=== PATIENT | female | born 1980 | race Caucasian/White ===

== ENCOUNTER 2018-02-05 22:07 | Inpatient (IN) | payer BC ==
[2018-02-05] MEDS ORDERED: ACETAMINOPHEN 325 MG TABLET (FP) PO ONE (22:16)
--- NOTE | 2018-02-05 23:54 | PDOC ---
History of Present Illness - General Chief Complaint: Pain, Acute Stated Complaint: ABDOMINAL PAIN, BODYACHES, FEVER Time Seen by Provider: 02/05/18 23:54 Past History - Past Medical History Allergies/Adverse Reactions: Allergies Allergy/AdvReac Type Severity Reaction Status Date / Time No Known Allergies Allergy Verified 01/28/16 20:23 Home Medications: Ambulatory Orders Omeprazole 20 mg PO DAILY 01/28/16 COPD: No - Suicide/Smoking/Psychosocial Hx Smoking History: Never smoked Number of Cigarettes Smoked Daily: 0 Hx Alcohol Use: No Drug/Substance Use Hx: No *Physical Exam - Vital Signs Last Vital Signs Temp Pulse Resp BP Pulse Ox 101.2 F H 120 H 18 119/73 97 02/05/18 22:12 02/05/18 22:12 02/05/18 22:12 02/05/18 22:12 02/05/18 22:12 ED Treatment Course - Medications Given in the ED: ED Medications Discontinued Medications Generic Name Dose Route Start Last Admin Trade Name Summer PRN Reason Stop Dose Admin Acetaminophen 650 mg 02/05/18 22:16 02/05/18 22:17 Tylenol - PO 02/05/18 22:17 650 mg NOW ONE Administration *DC/Admit/Observation/Transfer - Referrals Referrals: Joselo Saxena MD [Primary Care Provider] - - Patient Instructions - Post Discharge Activity
[2018-02-05] MEDS ORDERED: SODIUM CHLORIDE 0.9% 1000 ML INFUS.BAG IV STA (23:55)
[2018-02-05] MEDS ORDERED: ACETAMINOPHEN 1000 MG/100 ML VIAL (NON FORMULARY) IVPB ONE (23:58)
--- NOTE | 2018-02-06 00:13 | PDOC ---
History of Present Illness - General Chief Complaint: Pain, Acute Stated Complaint: ABDOMINAL PAIN, BODYACHES, FEVER Time Seen by Provider: 02/05/18 23:54 - History of Present Illness Initial Comments: 02/06/18 00:09 37 yo F with h/o GERD, and migraines (Topiramate) who p/w diffuse, sharp, abdominal pain. Patient reports acute onset of diffuse, unremitting, sharp, abdominal pain beginning Tuesday (02/03/18), while at work. Endorses chills and body aches beginning Tuesday. Reports loose stools 02/04/18 and associated crampy abdominal pain with BM. Denies BPR, or mucous stools. No identifiable triggers or alleviators. Endorses fevers and chills x 3 days with Tmax 101.0. Denies h/o similar symptoms. Reports heart racing, body aches, decreased appetite, and nausea without vomiting. 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 Patient denies N/V, F,C, CP, SOB, urinary complaints, abdominal pain, diarrhea, constipation, lightheadedness, weakness, sensory changes. PMHx: as noted above Surgical: Dneies h/o adbominal or pelvic surgeyr ROS: as noted SHx: Denies tobacco use, IVDA. Social Etoh Allergies: NKDA Past History - Past Medical History Allergies/Adverse Reactions: Allergies Allergy/AdvReac Type Severity Reaction Status Date / Time No Known Allergies Allergy Verified 01/28/16 20:23 Home Medications: Ambulatory Orders Omeprazole 20 mg PO DAILY 01/28/16 COPD: No - Suicide/Smoking/Psychosocial Hx Smoking History: Never smoked Number of Cigarettes Smoked Daily: 0 Hx Alcohol Use: No Drug/Substance Use Hx: No Review of Systems - Review of Systems Comments:: 02/06/18 00:19 GENERAL/CONSTITUTIONAL: + fever and chills. No weakness. HEAD, EYES, EARS, NOSE AND THROAT: No change in vision. No ear pain or discharge. No sore throat. CARDIOVASCULAR: No chest pain or shortness of breath RESPIRATORY: No cough, wheezing, or hemoptysis. GASTROINTESTINAL: + nausea, vomiting, diarrhea, and abdominal pain. No constipation. GENITOURINARY: No dysuria, frequency, or change in urination. MUSCULOSKELETAL: + joint /muscle pain. No neck or back pain. SKIN: No rash NEUROLOGIC: No headache, vertigo, loss of consciousness, or change in strength/ sensation. ENDOCRINE: No increased thirst. No abnormal weight change HEMATOLOGIC/LYMPHATIC: No anemia, easy bleeding, or history of blood clots. ALLERGIC/IMMUNOLOGIC: No hives or skin allergy. *Physical Exam - Vital Signs Last Vital Signs Temp Pulse Resp BP Pulse Ox 101.2 F H 120 H 18 119/73 97 02/05/18 22:12 02/05/18 22:12 02/05/18 22:12 02/05/18 22:12 02/05/18 22:12 - Physical Exam Comments: 02/06/18 00:19 GENERAL: Awake, alert, and fully oriented, in no acute distress HEAD: No signs of trauma, normocephalic, atraumatic EYES: PERRLA, EOMI, sclera anicteric, conjunctiva clear ENT: Dry mucous membranes. hearing grossly normal, nares patent, oropharynx clear without exudates. NECK: Normal ROM, supple, no lymphadenopathy, JVD, or masses LUNGS: No distress, speaks full sentences, clear to auscultation bilaterally HEART: Regular rate and rhythm, normal S1 and S2, no murmurs, rubs or gallops, peripheral pulses normal and equal bilaterally. ABDOMEN: + LLQ abdominal ttp. Soft, normoactive bowel sounds. No guarding, no rebound, no rigidity. No masses. Neg CVA ttp. EXTREMITIES : Normal inspection, Normal range of motion, no edema. No clubbing or cyanosis. s SKIN: Warm, Dry, normal turgor, no rashes or lesions noted ED Treatment Course - LABORATORY CBC & Chemistry Diagram: 02/07/18 06:30 02/07/18 06:30 - Medications Given in the ED: ED Medications Discontinued Medications Generic Name Dose Route Start Last Admin Trade Name Freq PRN Reason Stop Dose Admin Acetaminophen 650 mg 02/05/18 22:16 02/05/18 22:17 Tylenol - PO 02/05/18 22:17 650 mg NOW ONE Administration Medical Decision Making - Medical Decision Making 02/06/18 00:16 37 yo F with h/o migraines ( Topiramate ) who p/w diffuse, sharp, abdominal pain. Temp 101.2, HR 120, vitals otherwise stable. + LLQ ttp. Will evaluate for diverticulitis vs. colitis. Will consider appendicitis, pyelonephritis, cystitis. Low suspicion pancreatitis, AAA, mesenteric ischemia, ovarian torsion. pain control and adequate fluid hydration. ED Course: Sepsis workup, LA, Blood Cx., Trop, VBG, CBC,CMP, UA, Urine preg APAP, NS 02/06/18 02:41 CBC, CMP: Unremarkable UA: Neg Serum HCG: Neg Trop: Neg 02/06/18 02:41 Patient signed out to Dr. Isabel. Pending CTAP to assess for diverticulitis or enteritis. *DC/Admit/Observation/Transfer Diagnosis at time of Disposition: Acute colitis - Discharge Dispostion Condition at time of disposition: Fair Decision to Admit order: Yes - Referrals - Patient Instructions - Post Discharge Activity
--- NOTE | 2018-02-06 00:18 | PDOC ---
Attending Attestation - HPI HPI: 02/06/18 00:46 The patient is a 37 year old female, with a significant past medical history of migraines (Topiramate), who presents to the emergency department with chills, fevers, body aches, abdominal pain, loose stools and nausea since Tuesday afternoon. She states she was seated at work and developed chills. She states she noted her temperature to be 101F at the time. She states she went home and developed a progressive onset of abdominal pain, more prominent to the left, loose stools with associated abdominal cramping, and nausea. She denies any vomiting. She reports her stools are loose, nonbilious, nonbloody. She reports decreased appetite since the onset of her symptoms. She denies any recent travels. She denies any new foods or recent ETOH. 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 The patient denies chest pain, shortness of breath, headache and dizziness. The patient denies vomit, diarrhea and constipation. The patient denies dysuria, frequency, urgency and hematuria. Allergies: NKDA Past surgical history: no abdominal surgery reported Social history: denies ETOH, tobacco, or illicit drug use. - Physicial Exam PE: 02/06/18 00:46 GENERAL: Well-appearing, well-nourished. No apparent distress. HEENT: Normocephalic, atraumatic. PERRL, EOM intact. CARDIOVASCULAR: Normal S1, S2. Regular rate and rhythm. PULMONARY: Clear to auscultation bilaterally. ABDOMEN: (+) LLQ tenderness to palpation. soft, non-distended, MUSCULOSKELETAL: (+) mild left CVA tenderness EXTREMITIES: Normal ROM in all four extremities. No gross deformities. SKIN: Warm, dry. No rash NEUROLOGICAL: No focal neurological deficits. 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
[2018-02-06] MEDS ORDERED: ACETAMINOPHEN INJECTION 100 ML IVPB ONE ×3 (01:28→13:41)
[2018-02-06 01:30] LABS: BASO % 0.1 % (0-2.0); EOS % 1.4 % (0-4.5); HEMATOCRIT 35.6 % (32.4-45.2); HEMOGLOBIN 12.3 GM/dL (10.7-15.3); LYMPH % 8.9 % (8-40); MCH 30.2 pg (25.7-33.7); MCHC 34.4 g/dl (32.0-36.0); MEAN CELL VOLUME 87.8 fl (80-96); MEAN PLT VOLUME 8.8 fl (7.5-11.1); MONO % 4.1 % (3.8-10.2); NEUT % 85.5 % (42.8-82.8); PLATELET COUNT 212 K/MM3 (134-434); RBC 4.06 M/mm3 (3.60-5.2); RDW 13.4 % (11.6-15.6); WHITE BLOOD COUNT 9.8 K/mm3 (4.0-10.0)
[2018-02-06 01:46] LABS: INR 1.09 (0.83-1.09); PROTHROMBIN TIME (PATIENT) 12.9 SEC (9.7-13.0)
[2018-02-06 01:49] LABS: ACTIVATED PTT 26.7 SECONDS (25.2-36.5)
[2018-02-06 01:54] LABS: URINE APPEARANCE CLEAR; URINE BILIRUBIN NEGATIVE (<2.0 mg/dL); URINE COLOR YELLOW; URINE GLUCOSE (UA) NEGATIVE (NEGATIVE); URINE KETONE TRACE (NEGATIVE); URINE LEUK ESTERASE NEGATIVE (NEGATIVE); URINE NITRITE NEGATIVE (NEGATIVE); URINE PROTEIN NEGATIVE (NEGATIVE); URINE UROBILINOGEN NEGATIVE mg/dL (0.2-1.0)
[2018-02-06 01:57] LABS: ALK PHOS 64 U/L (45-117); ANION GAP 9 MMOL/L (8-16); BILIRUBIN,TOTAL 0.4 mg/dL (0.2-1); BLOOD UREA NITROGEN 9 mg/dL (7-18); CHLORIDE 107 mmol/L (98-107); CO2 24 mmol/L (21-32); CREATININE 0.8 mg/dL (0.55-1.3); GLUCOSE,RANDOM 95 mg/dL (74-106); POTASSIUM 3.7 mmol/L (3.5-5.1); SGOT/AST 21 U/L (15-37); SGPT/ALT 15 U/L (13-61); SODIUM 139 mmol/L (136-145); TOT PROT 6.4 g/dl (6.4-8.2)
[2018-02-06 02:04] LABS: EPI CELLS RARE /HPF (FEW); URINE BACTERIA FEW /hpf (NONE SEEN); URINE MUCUS RARE
[2018-02-06] MEDS ORDERED: CIPROFLOXACIN 400 MG/D5W 400 MG/200 ML IVPB IVPB ONE (07:29)
[2018-02-06] MEDS ORDERED: SODIUM CHLORIDE 0.9% 500 ML INFUS.BAG IV ONE (07:29)
[2018-02-06] MEDS ORDERED: ACETAMINOPHEN 1000 MG/100 ML VIAL (NON FORMULARY) IVPB ONE (07:31)
[2018-02-06] MEDS ORDERED: morphine CARPU-JECT 4 MG/1 ML DISP.SYRIN IVPUSH ONE (07:31)
--- NOTE | 2018-02-06 07:42 | PDOC ---
*Physical Exam - Vital Signs Last Vital Signs Temp Pulse Resp BP Pulse Ox 100.2 F H 104 H 18 116/62 97 02/06/18 07:26 02/06/18 07:26 02/06/18 07:26 02/06/18 07:26 02/06/18 07:26 ED Treatment Course - LABORATORY CBC & Chemistry Diagram: 02/06/18 01:20 02/06/18 01:20 - ADDITIONAL ORDERS Additional order review: Laboratory Results 02/06/18 02/06/18 02/06/18 02:11 01:27 01:20 PT with INR INR PTT (Actin FS) VBG pH POC VBG pCO2 POC VBG pO2 Mixed VBG HCO3 Sodium Potassium Chloride Carbon Dioxide Anion Gap BUN Creatinine Creat Clearance w eGFR Random Glucose Lactic Acid Calcium Total Bilirubin AST ALT Alkaline Phosphatase Troponin I < 0.02 Total Protein Albumin Serum , Qual Negative Urine Color Yellow Urine Appearance Clear Urine pH 5.0 Ur Specific [place] 1.013 Urine Protein Negative Urine Glucose (UA) Negative Urine Ketones Trace H Urine Blood 2+ H Urine Nitrite Negative Urine Bilirubin Negative Urine Urobilinogen Negative Ur Leukocyte Esterase Negative Urine WBC (Auto) 3 Urine RBC (Auto) 1 Ur Epithelial Cells Rare Urine Bacteria Few Urine Mucus Rare 02/06/18 02/06/18 02/06/18 01:20 01:20 01:20 PT with INR INR PTT (Actin FS) VBG pH Cancelled POC VBG pCO2 Cancelled POC VBG pO2 Cancelled Mixed VBG HCO3 Cancelled Sodium 139 Potassium 3.7 Chloride 107 Carbon Dioxide 24 Anion Gap 9 BUN 9 Creatinine 0.8 Creat Clearance w eGFR > 60 Random Glucose 95 Lactic Acid 1.8 Calcium 8.0 L Total Bilirubin 0.4 AST 21 ALT 15 Alkaline Phosphatase 64 Troponin I Total Protein 6.4 Albumin 3.0 L Serum , Qual Urine Color Urine Appearance Urine pH Ur Specific [place] Urine Protein Urine Glucose (UA) Urine Ketones Urine Blood Urine Nitrite Urine Bilirubin Urine Urobilinogen Ur Leukocyte Esterase Urine WBC (Auto) Urine RBC (Auto) Ur Epithelial Cells Urine Bacteria Urine Mucus 02/06/18 01:20 PT with INR 12.90 INR 1.09 PTT (Actin FS) 26.7 VBG pH POC VBG pCO2 POC VBG pO2 Mixed VBG HCO3 Sodium Potassium Chloride Carbon Dioxide Anion Gap BUN Creatinine Creat Clearance w eGFR Random Glucose Lactic Acid Calcium Total Bilirubin AST ALT Alkaline Phosphatase Troponin I Total Protein Albumin Serum , Qual Urine Color Urine Appearance Urine pH Ur Specific [place] Urine Protein Urine Glucose (UA) Urine Ketones Urine Blood Urine Nitrite Urine Bilirubin Urine Urobilinogen Ur Leukocyte Esterase Urine WBC (Auto) Urine RBC (Auto) Ur Epithelial Cells Urine Bacteria Urine Mucus 02/06/18 01:20 RBC 4.06 MCV 87.8 MCHC 34.4 RDW 13.4 MPV 8.8 Neutrophils % 85.5 H Lymphocytes % 8.9 Monocytes % 4.1 Eosinophils % 1.4 Basophils % 0.1 - Medications Given in the ED: ED Medications Discontinued Medications Generic Name Dose Route Start Last Admin Trade Name Freq PRN Reason Stop Dose Admin Acetaminophen 650 mg 02/05/18 22:16 02/05/18 22:17 Tylenol - PO 02/05/18 22:17 650 mg NOW ONE Administration Acetaminophen 1,000 mg 02/05/18 23:58 02/06/18 01:38 Ofirmev Injection - IVPB 02/05/18 23:59 1,000 mg ONCE ONE Administration Sodium Chloride 1,810 ml 02/05/18 23:55 02/06/18 00:56 Normal Saline - 30 ml/kg (1810 ml) 02/05/18 23:56 1,810 ml IV Administration ONCE STA Medical Decision Making - Medical Decision Making 02/06/18 07:42 Pt information based on chart review and encounter. 37 yo F with h/o GERD, and migraines (Topiramate) who p/w diffuse, sharp, abdominal pain, n/v/d x 3 days, +fever and chills, body aches and malaise. vitals with fever and tachycardia, has SIRS criteria, but does not appear toxic. sepsis source with normal lactic 2/2 colitis. had given tylenol/IVF overnight. fever recurred. labs and lytes reviewed. lactic normal. given additional tylenol and IVF> CT a/p reviewed with acute colitis, no other intra abdominal pathology. Cipro/flagyl IV abx for colitis. on reasssessment at 730am, pain recurred, more in LLQ w/o peritoneal signs, treat with morphine, pain control. still having high fever and pain with difficulty denise PO. discussed results, impression and plan with patient at bedside extensively, pt feels comfortable with admission for IV fluids, abx and pain control for acute colitis. admit to hospitalist service, PMD Dr. Saxena in [place].. 02/06/18 07:48 02/06/18 07:51 02/06/18 07:51 *DC/Admit/Observation/Transfer Diagnosis at time of Disposition: Acute colitis - Discharge Dispostion Condition at time of disposition: Fair Decision to Admit order: Yes Decision to Admit order Date/Time: 02/06/18 07:48 Decision to Admit Order Category Date Time Status Decision to Admit to Hospital Routine Admission 02/06/18 07:30 Ordered - Referrals Referrals: Joselo Saxena MD [Primary Care Provider] - - Patient Instructions - Post Discharge Activity
[2018-02-06] MEDS ORDERED: morphine SULFATE 4 MG/ML VIAL ONE (07:52)
--- NOTE | 2018-02-06 09:09 | HP ---
CHIEF COMPLAINT: abdominal pain PCP: Dr. Saxena in [facility] HISTORY OF PRESENT ILLNESS: 37F with PMH of migraine and gastritis in the past presents to the hospital with abdominal pain. Patient states the Abdominal pain started Jamari night. Later that night the pain progressed and started to be accompanied with diarrhea and fever. she states she also started to get nauseous. She denies any vomiting or dry heaving but occasionally gags. She states she had a fever Jamari night that was as high as 101. She describes the diarrhea as loose and watery. Denies seeing blood in her stool. She has had almost no PO intake since her symptoms started. She also endorses chills. she denies chest pain shortness of breath or urinary symptoms. Had a CT scan in the ED which was read by imaging cathodic protection technician and was found to have acute colitis. She was also noted to be febrile to 101.2 and tachycardic. Patient endorses having an EGD a few years ago for gastritis. She endorses being thirsty at this time but too nauseated to drink anything. ER course was notable for: (1)Labs (2)CTAP (3)IVF ABx Recent Travel:Denies PAST MEDICAL HISTORY:Migraines PAST SURGICAL HISTORY:Lasix eye surgery Social History: Smoking:Denies Alcohol:Denies Drugs: Denies Family History:NA Allergies No Known Allergies Allergy (Verified 01/28/16 20:23) HOME MEDICATIONS: Home Medications Medication Instructions Recorded Omeprazole 20 mg PO DAILY 01/28/16 REVIEW OF SYSTEMS CONSTITUTIONAL: Absent: diaphoresis, generalized weakness, malaise, weight change Present: fever, chills, loss of appetite HEENT: Absent: rhinorrhea, nasal congestion, throat pain, throat swelling, difficulty swallowing, mouth swelling, ear pain, eye pain, visual changes CARDIOVASCULAR: Absent: chest pain, syncope, palpitations, irregular heart rate, lightheadedness , peripheral edema RESPIRATORY: Absent: cough, shortness of breath, dyspnea with exertion, orthopnea, wheezing, stridor, hemoptysis GASTROINTESTINAL: Absent: abdominal distension,vomiting, constipation, melena, hematochezia Present: abdominal pain, nausea, diarrhea GENITOURINARY: Absent: dysuria, frequency, urgency, hesitancy, hematuria, flank pain, genital pain MUSCULOSKELETAL: Absent: myalgia, arthralgia, joint swelling, back pain, neck pain SKIN: Absent: rash, itching, pallor HEMATOLOGIC/IMMUNOLOGIC: Absent: easy bleeding, easy bruising, lymphadenopathy, frequent infections ENDOCRINE: Absent: unexplained weight gain, unexplained weight loss, heat intolerance, cold intolerance NEUROLOGIC: Absent: headache, focal weakness or paresthesias, dizziness, unsteady gait, seizure, mental status changes, bladder or bowel incontinence PSYCHIATRIC: Absent: anxiety, depression, suicidal or homicidal ideation, hallucinations. PHYSICAL EXAMINATION Vital Signs - 24 hr 02/05/18 02/06/18 22:12 07:26 Temperature 101.2 F H 100.2 F H Pulse Rate 120 H Pulse Rate [ 104 H Left Apical] Respiratory 18 18 Rate Blood Pressure 119/73 Blood Pressure 116/62 [Right Arm] O2 Sat by Pulse 97 97 Oximetry (%) GENERAL: Awake, alert, and fully oriented, in no acute distress. HEAD: Normal with no signs of trauma. EYES: Pupils equal, round and reactive to light, extraocular movements intact EARS, NOSE, THROAT: Dry mucous membranes. NECK: Normal range of motion, supple LUNGS: Breath sounds equal, clear to auscultation bilaterally. No accessory muscle use. HEART: Regular rate and rhythm, normal S1 and S2 without murmur, rub or gallop. ABDOMEN: Soft, diffusely tender to palpation, not distended, normoactive bowel sounds, no guarding, no rebound MUSCULOSKELETAL: Normal range of motion at all joints. No bony deformities or tenderness. No CVA tenderness. UPPER EXTREMITIES: warm, well-perfused. No peripheral edema. LOWER EXTREMITIES: warm, well-perfused. No calf tenderness. No peripheral edema. NEUROLOGICAL: Cranial nerves II-XII intact. Normal speech. PSYCHIATRIC: Cooperative. Good eye contact. Appropriate mood and affect. SKIN: Warm, dry, normal turgor Laboratory Results - last 24 hr 02/06/18 02/06/18 02/06/18 01:20 01:20 01:20 WBC 9.8 RBC 4.06 Hgb 12.3 Hct 35.6 MCV 87.8 MCH 30.2 MCHC 34.4 RDW 13.4 Plt Count 212 MPV 8.8 Absolute Neuts (auto) 8.4 H Neutrophils % 85.5 H Lymphocytes % 8.9 Monocytes % 4.1 Eosinophils % 1.4 Basophils % 0.1 Nucleated RBC % 0 PT with INR 12.90 INR 1.09 PTT (Actin FS) 26.7 VBG pH Cancelled POC VBG pCO2 Cancelled POC VBG pO2 Cancelled Mixed VBG HCO3 Cancelled Sodium Potassium Chloride Carbon Dioxide Anion Gap BUN Creatinine Creat Clearance w eGFR Random Glucose Lactic Acid Calcium Total Bilirubin AST ALT Alkaline Phosphatase Troponin I Total Protein Albumin Serum , Qual Urine Color Urine Appearance Urine pH Ur Specific [place] Urine Protein Urine Glucose (UA) Urine Ketones Urine Blood Urine Nitrite Urine Bilirubin Urine Urobilinogen Ur Leukocyte Esterase Urine WBC (Auto) Urine RBC (Auto) Ur Epithelial Cells Urine Bacteria Urine Mucus 02/06/18 02/06/18 02/06/18 01:20 01:20 01:20 WBC RBC Hgb Hct MCV MCH MCHC RDW Plt Count MPV Absolute Neuts (auto) Neutrophils % Lymphocytes % Monocytes % Eosinophils % Basophils % Nucleated RBC % PT with INR INR PTT (Actin FS) VBG pH POC VBG pCO2 POC VBG pO2 Mixed VBG HCO3 Sodium 139 Potassium 3.7 Chloride 107 Carbon Dioxide 24 Anion Gap 9 BUN 9 Creatinine 0.8 Creat Clearance w eGFR > 60 Random Glucose 95 Lactic Acid 1.8 Calcium 8.0 L Total Bilirubin 0.4 AST 21 ALT 15 Alkaline Phosphatase 64 Troponin I < 0.02 Total Protein 6.4 Albumin 3.0 L Serum , Qual Urine Color Urine Appearance Urine pH Ur Specific [place] Urine Protein Urine Glucose (UA) Urine Ketones Urine Blood Urine Nitrite Urine Bilirubin Urine Urobilinogen Ur Leukocyte Esterase Urine WBC (Auto) Urine RBC (Auto) Ur Epithelial Cells Urine Bacteria Urine Mucus 02/06/18 02/06/18 01:27 02:11 WBC RBC Hgb Hct MCV MCH MCHC RDW Plt Count MPV Absolute Neuts (auto) Neutrophils % Lymphocytes % Monocytes % Eosinophils % Basophils % Nucleated RBC % PT with INR INR PTT (Actin FS) VBG pH POC VBG pCO2 POC VBG pO2 Mixed VBG HCO3 Sodium Potassium Chloride Carbon Dioxide Anion Gap BUN Creatinine Creat Clearance w eGFR Random Glucose Lactic Acid Calcium Total Bilirubin AST ALT Alkaline Phosphatase Troponin I Total Protein Albumin Serum , Qual Negative Urine Color Yellow Urine Appearance Clear Urine pH 5.0 Ur Specific [place] 1.013 Urine Protein Negative Urine Glucose (UA) Negative Urine Ketones Trace H Urine Blood 2+ H Urine Nitrite Negative Urine Bilirubin Negative Urine Urobilinogen Negative Ur Leukocyte Esterase Negative Urine WBC (Auto) 3 Urine RBC (Auto) 1 Ur Epithelial Cells Rare Urine Bacteria Few Urine Mucus Rare CTAP: Acute colitis of sigmoid colon-Preliminary read by imaging cathodic protection technician. ASSESSMENT/PLAN: 37F presents to the ER with abdominal pain, nausea, diarrhea, and fever, found to be septic secondary to acute colitis. Sepsis from acute colitis: Colitis causing her diarrhea and volume dehydration Tachycardic, febrile, with a source found Admit to inpatient services NPO IVF Pain control Antipyretics Antiemetics send stool culture, Ova and parasites, WBCs UCx, BCx follow up ceftriaxone flagyl-Patient got cipro flagyl in ED follow up final CTAO read FEN: NS @ 100ml/hr no electrolyte issues NPO for now-advance to clear liquid diet as tolerated PPx: SCDs/HSQ no GI PPx indicated Ambulate Case discussed with Dr. Lundberg Visit type - Emergency Visit Emergency Visit: Yes ED Registration Date: 02/06/18 Care time: The patient presented to the Emergency Department on the above date and was hospitalized for further evaluation of their emergent condition. - New Patient This patient is new to me today: Yes Date on this admission: 02/06/18 - Critical Care Critical Care patient: No Hospitalist Screening - Colonoscopy Questionnaire Colonoscopy Questionnaire: Colonoscopy Questionnaire - Patient: 50 - 75 years old and never had a screening colonoscopy: No History of colon or rectal polyps, or CA: No History of IBD, Crohn's disease or UC: No History of abdominal radiation therapy as a child: No - Relative: 1 with colon or rectal CA, or polyps at age 60 or younger: No Colon or rectal CA diagnosed at age 45 or younger: No Multiple relatives with colon or rectal CA: No - Outcome: Screening Result: Negative Screen
--- NOTE | 2018-02-06 09:42 | PN ---
Teaching Attending Note Name of Resident: Tommy Conway ATTENDING PHYSICIAN STATEMENT I saw and evaluated the patient. I reviewed the resident's note and discussed the case with the resident. I agree with the resident's findings and plan as documented. SUBJECTIVE: This is a 37 year old woman with a history of gastritis who comes to the ED complaining of abdominal pain x 2-3 days. She has had fever, nausea, and diarrhea, but no vomiting. She denies melena, rectal bleeding. OBJECTIVE: Vital Signs Period Temp Pulse Resp BP Sys/Park Pulse Ox Last 24 Hr 100.2 F-101.2 F 104-120 -18 116-119/62-73 97-97 HEART: S1S2, tachycardic LUNGS: Clear ABDOMEN: Soft, non-distended, diffuse tenderness, normal BS EXTREMITIES: No edema Laboratory Tests 02/06/18 02/06/18 02/06/18 01:20 01:20 01:20 WBC 9.8 RBC 4.06 Hgb 12.3 Hct 35.6 MCV 87.8 MCH 30.2 MCHC 34.4 RDW 13.4 Plt Count 212 MPV 8.8 Absolute Neuts (auto) 8.4 H Neutrophils % 85.5 H Lymphocytes % 8.9 Monocytes % 4.1 Eosinophils % 1.4 Basophils % 0.1 Nucleated RBC % 0 PT with INR 12.90 INR 1.09 PTT (Actin FS) 26.7 VBG pH Cancelled POC VBG pCO2 Cancelled POC VBG pO2 Cancelled Mixed VBG HCO3 Cancelled Sodium Potassium Chloride Carbon Dioxide Anion Gap BUN Creatinine Creat Clearance w eGFR Random Glucose Lactic Acid Calcium Total Bilirubin AST ALT Alkaline Phosphatase Troponin I Total Protein Albumin Serum , Qual Urine Color Urine Appearance Urine pH Ur Specific [place] Urine Protein Urine Glucose (UA) Urine Ketones Urine Blood Urine Nitrite Urine Bilirubin Urine Urobilinogen Ur Leukocyte Esterase Urine WBC (Auto) Urine RBC (Auto) Ur Epithelial Cells Urine Bacteria Urine Mucus 02/06/18 02/06/18 02/06/18 01:20 01:20 01:20 WBC RBC Hgb Hct MCV MCH MCHC RDW Plt Count MPV Absolute Neuts (auto) Neutrophils % Lymphocytes % Monocytes % Eosinophils % Basophils % Nucleated RBC % PT with INR INR PTT (Actin FS) VBG pH POC VBG pCO2 POC VBG pO2 Mixed VBG HCO3 Sodium 139 Potassium 3.7 Chloride 107 Carbon Dioxide 24 Anion Gap 9 BUN 9 Creatinine 0.8 Creat Clearance w eGFR > 60 Random Glucose 95 Lactic Acid 1.8 Calcium 8.0 L Total Bilirubin 0.4 AST 21 ALT 15 Alkaline Phosphatase 64 Troponin I < 0.02 Total Protein 6.4 Albumin 3.0 L Serum , Qual Urine Color Urine Appearance Urine pH Ur Specific [place] Urine Protein Urine Glucose (UA) Urine Ketones Urine Blood Urine Nitrite Urine Bilirubin Urine Urobilinogen Ur Leukocyte Esterase Urine WBC (Auto) Urine RBC (Auto) Ur Epithelial Cells Urine Bacteria Urine Mucus 02/06/18 02/06/18 01:27 02:11 WBC RBC Hgb Hct MCV MCH MCHC RDW Plt Count MPV Absolute Neuts (auto) Neutrophils % Lymphocytes % Monocytes % Eosinophils % Basophils % Nucleated RBC % PT with INR INR PTT (Actin FS) VBG pH POC VBG pCO2 POC VBG pO2 Mixed VBG HCO3 Sodium Potassium Chloride Carbon Dioxide Anion Gap BUN Creatinine Creat Clearance w eGFR Random Glucose Lactic Acid Calcium Total Bilirubin AST ALT Alkaline Phosphatase Troponin I Total Protein Albumin Serum , Qual Negative Urine Color Yellow Urine Appearance Clear Urine pH 5.0 Ur Specific [place] 1.013 Urine Protein Negative Urine Glucose (UA) Negative Urine Ketones Trace H Urine Blood 2+ H Urine Nitrite Negative Urine Bilirubin Negative Urine Urobilinogen Negative Ur Leukocyte Esterase Negative Urine WBC (Auto) 3 Urine RBC (Auto) 1 Ur Epithelial Cells Rare Urine Bacteria Few Urine Mucus Rare Home Medications Medication Instructions Recorded Omeprazole 20 mg PO DAILY 01/28/16 ASSESSMENT AND PLAN: This is a 37 year old woman with a history of gastritis who presented to the ED with abdominal pain, fever, nausea, and diarrhea x 2-3 days. 1. Sepsis secondary to acute colitis - NPO - IV fluid - Rocephin, Flagyl - Morphine as needed for pain - Zofran as needed for nausea - Stool studies 2. Gastritis - Continue Prilosec
[2018-02-06] MEDS ORDERED: ENOXAPARIN NA (PORCINE) 40 MG/0.4 ML DISP.SYRIN SQ ONE (10:40)
[2018-02-06] MEDS ORDERED: ONDANSETRON 4 MG/2 ML VIAL ONE ×2 (10:40→13:19)
[2018-02-06] MEDS: ENOXAPARIN NA (PORCINE) 40 MG/0.4 ML DISP.SYRIN SQ SCH (10:57)
[2018-02-06] MEDS: SODIUM CHLORIDE 1,000 ML IV SCH ×2 (10:57→17:24)
[2018-02-06] MEDS ORDERED: MORPHINE SULFATE 2 MG/ML VIAL ONE (13:19)
[2018-02-06] MEDS: MORPHINE SULFATE 2 MG/ML VIAL IVPUSH PRN ×2 (13:25→19:18)
[2018-02-06] MEDS: ONDANSETRON 4 MG/2 ML VIAL IVPUSH PRN ×2 (13:25→19:37)
[2018-02-06] MEDS: ACETAMINOPHEN 1000 MG/100 ML VIAL (NON FORMULARY) IVPB PRN (13:45)
[2018-02-06 19:30] VITALS: BMI 22.1
[2018-02-07] MEDS: ACETAMINOPHEN 1000 MG/100 ML VIAL (NON FORMULARY) IVPB PRN (06:54)
[2018-02-07 08:04] LABS: BASO % 0.2 % (0-2.0); EOS % 1.3 % (0-4.5); HEMATOCRIT 36.3 % (32.4-45.2); HEMOGLOBIN 12.2 GM/dL (10.7-15.3); LYMPH % 11.7 % (8-40); MCH 29.5 pg (25.7-33.7); MCHC 33.7 g/dl (32.0-36.0); MEAN CELL VOLUME 87.6 fl (80-96); MEAN PLT VOLUME 9.1 fl (7.5-11.1); MONO % 10.8 % (3.8-10.2); PLATELET COUNT 238 K/MM3 (134-434); RBC 4.14 M/mm3 (3.60-5.2); RDW 13.4 % (11.6-15.6)
[2018-02-07 08:08] LABS: ANION GAP 14 MMOL/L (8-16); BLOOD UREA NITROGEN 7 mg/dL (7-18); CALCIUM 8.1 mg/dL (8.5-10.1); CHLORIDE 109 mmol/L (98-107); CO2 20 mmol/L (21-32); CREATININE 0.6 mg/dL (0.55-1.3); GLUCOSE,RANDOM 89 mg/dL (74-106); MAGNESIUM 1.9 mg/dL (1.8-2.4); PHOSPHOROUS 2.2 mg/dL (2.5-4.9); SODIUM 142 mmol/L (136-145)
[2018-02-07 08:20] LABS: POTASSIUM 2.8 mmol/L (3.5-5.1)
[2018-02-07] MEDS ORDERED: POTASSIUM CHLORIDE TABS 20 MEQ TABLET.ER (FP) PO ONE (08:38)
[2018-02-07] MEDS ORDERED: cefTRIAXone SODIUM 1 GM VIAL ONE (09:39)
[2018-02-07] MEDS ORDERED: DEXTROSE 5%-WATER - 50 ML IVPB ONE (09:39)
[2018-02-07] MEDS: KCL 10 MEQ IVPB 10 MEQ/100 ML INFUS.BAG IVPB SCH ×3 (09:53→12:05)
[2018-02-07] MEDS: ENOXAPARIN NA (PORCINE) 40 MG/0.4 ML DISP.SYRIN SQ SCH (09:53)
[2018-02-07] MEDS ORDERED: CEFTRIAXONE 1 GM in DEXTROSE 5%-WATER - 50 ML IVPB SCH (10:00)
[2018-02-07 10:51] LABS: ACANTHOCYTES 0; ANISOCYTOSIS 0; HELMET CELLS 0; HOWELL-JOLLY BODIES 0; MACROCYTOSIS 0; OVALOCYTE 0; PLATELET ESTIMATE NORMAL; ROULEAU 0; SICKELED CELLS 0; TARGET CELLS 0; TEAR DROP CELLS 0; TOXIC GRANULATION 0
--- NOTE | 2018-02-07 12:25 | PN ---
Physical Exam: SUBJECTIVE: Patient seen and examined. She says she feels a little better. OBJECTIVE: Vital Signs Period Temp Pulse Resp BP Sys/Park Pulse Ox Last 24 Hr 100.3 F-102.4 F 99-110 18-20 107-112/64-68 98-99 GENERAL: The patient is awake, alert, and fully oriented, in no acute distress. LUNGS: Breath sounds equal, clear to auscultation bilaterally, no wheezes, no crackles, no accessory muscle use. HEART: Regular rate and rhythm, S1, S2 without murmur, rub or gallop. ABDOMEN: Soft, diffuse tenderness, nondistended, normoactive bowel sounds, no guarding, no rebound, no hepatosplenomegaly, no masses. EXTREMITIES: 2+ pulses, warm, well-perfused, no edema. Laboratory Results - last 24 hr 02/07/18 02/07/18 06:30 06:30 WBC 12.0 H RBC 4.14 Hgb 12.2 Hct 36.3 MCV 87.6 MCH 29.5 MCHC 33.7 RDW 13.4 Plt Count 238 MPV 9.1 Absolute Neuts (auto) 9.1 H Neutrophils % 76.0 Neutrophils % (Manual) 65.7 Band Neutrophils % 9.8 Lymphocytes % 11.7 D Lymphocytes % (Manual) 11.7 Monocytes % 10.8 H D Monocytes % (Manual) 10 Eosinophils % 1.3 Eosinophils % (Manual) 1.0 Basophils % 0.2 Basophils % (Manual) 1.0 Myelocytes % (Man) 0 Promyelocytes % (Man) 0 Blast Cells % (Manual) 0 Nucleated RBC % 0 Metamyelocytes 0 Hypochromia 0 Toxic Granulation 0 Dohle Bodies 0 Platelet Estimate Normal Polychromasia 0 Poikilocytosis 0 Basophilic Stippling 0 Anisocytosis 0 Microcytosis 0 Macrocytosis 0 Spherocytes 0 Sickle Cells 0 Target Cells 0 Tear Drop Cells 0 Ovalocytes 0 Stomatocytes 0 Helmet Cells 0 [place] Bodies 0 [place] Rings 0 Raymundo Cells 0 Acanthocytes (Spur) 0 Rouleaux 0 Fragmented RBCs 0 Schistocytes 0 Sodium 142 Potassium 2.8 L* Chloride 109 H Carbon Dioxide 20 L Anion Gap 14 BUN 7 Creatinine 0.6 Creat Clearance w eGFR > 60 Random Glucose 89 Calcium 8.1 L Phosphorus 2.2 L Magnesium 1.9 Active Medications Generic Name Dose Route Start Last Admin Trade Name Freq PRN Reason Stop Dose Admin Acetaminophen 1,000 mg 02/06/18 09:31 02/07/18 06:54 Ofirmev Injection - IVPB 1,000 mg Q6H PRN Administration pain 1-5 or fever Enoxaparin Sodium 40 mg 02/06/18 10:00 02/07/18 09:53 Lovenox - SQ 40 mg DAILY MG Administration Ceftriaxone Sodium 1 gm/ 50 mls @ 100 mls/hr 02/07/18 10:00 02/07/18 09:30 Dextrose IVPB 100 mls/hr DAILY MG Administration Protocol Metronidazole 500 mg in 100 mls @ 100 mls/hr 02/07/18 10:00 02/07/18 10:59 Flagyl 500mg Premixed Ivpb - IVPB 100 mls/hr Q8H-IV MG Administration Potassium Chloride/Sodium Chloride 20 meq in 1,000 mls @ 100 mls/hr 02/07/18 08:45 Ns+20 Meq Kcl - IV ASDIR MG Morphine Sulfate 2 mg 02/06/18 09:31 02/06/18 19:18 Morphine Sulfate IVPUSH 2 mg Q4H PRN Administration PAIN LEVEL 6-10 Ondansetron HCl 4 mg 02/06/18 09:31 02/06/18 19:37 Zofran Injection IVPUSH 4 mg Q6H PRN Administration NAUSEA ASSESSMENT/PLAN: This is a 37 year old woman with a history of gastritis who presented to the ED with abdominal pain, fever, nausea, and diarrhea x 2-3 days. 1. Sepsis secondary to acute colitis - Had fever 101.4 this morning - Continue Rocephin, Flagyl - Continue clear liquids, IV fluid - Stool studies pending 2. Gastritis - Continue Protonix 3. Hypokalemia - Replete potassium Visit type - Emergency Visit Emergency Visit: Yes ED Registration Date: 02/06/18 Care time: The patient presented to the Emergency Department on the above date and was hospitalized for further evaluation of their emergent condition. - New Patient This patient is new to me today: No - Critical Care Critical Care patient: No - Discharge Referral Referred to [facility] No
[2018-02-07] MEDS: PANTOPRAZOLE 40 MG TABLET (FP) PO SCH (14:08)
[2018-02-07] MEDS: SODIUM CHLORIDE 0.9%/KCL 20 MEQ/1,000 ML INFUS.BAG IV SCH (15:57)
[2018-02-07] MEDS: VANCOMYCIN 250 MG/5 ML ORAL SOLUTION PO SCH ×2 (17:31→23:22)
[2018-02-07] MEDS: ONDANSETRON 4 MG/2 ML VIAL IVPUSH PRN (18:56)
[2018-02-08] MEDS: SODIUM CHLORIDE 0.9%/KCL 20 MEQ/1,000 ML INFUS.BAG IV SCH ×4 (00:13→23:25)
[2018-02-08] MEDS: VANCOMYCIN 250 MG/5 ML ORAL SOLUTION PO SCH ×4 (05:47→23:29)
[2018-02-08 07:14] LABS: BASO % 0.3 % (0-2.0); HEMATOCRIT 35.2 % (32.4-45.2); HEMOGLOBIN 11.8 GM/dL (10.7-15.3); LYMPH % 14.8 % (8-40); MCH 29.3 pg (25.7-33.7); MCHC 33.4 g/dl (32.0-36.0); MEAN CELL VOLUME 87.9 fl (80-96); MEAN PLT VOLUME 8.9 fl (7.5-11.1); MONO % 8.1 % (3.8-10.2); NEUT % 70.8 % (42.8-82.8); PLATELET COUNT 215 K/MM3 (134-434); RBC 4.01 M/mm3 (3.60-5.2); RDW 13.5 % (11.6-15.6)
[2018-02-08 07:30] LABS: ANION GAP 6 MMOL/L (8-16); BLOOD UREA NITROGEN 4 mg/dL (7-18); CALCIUM 7.5 mg/dL (8.5-10.1); CHLORIDE 114 mmol/L (98-107); CO2 19 mmol/L (21-32); CREATININE 0.5 mg/dL (0.55-1.3); GLUCOSE,RANDOM 75 mg/dL (74-106); POTASSIUM 3.8 mmol/L (3.5-5.1); SODIUM 139 mmol/L (136-145)
[2018-02-08 08:21] LABS: PLATELET ESTIMATE ADEQUATE
[2018-02-08] MEDS: PANTOPRAZOLE 40 MG TABLET (FP) PO SCH (10:24)
[2018-02-08] MEDS: ENOXAPARIN NA (PORCINE) 40 MG/0.4 ML DISP.SYRIN SQ SCH (10:24)
--- NOTE | 2018-02-08 12:06 | CON.ID ---
Consult Consult Specialty:: infectious diseases Referred by:: Reason for Consultation:: fever,abd pain cdiff - History of Present Illness Chief Complaint: abd pain fever History of Present Illness: this is a 37 y/o healthy female who came to the hospital for abd pain and fevers. patient says he stomach ws causing her lot of problems patient was worked up and she was found to be cdiff positive and was started on vanco and flagy patient mentions that she had tooth infection couple of weeks back and she took abx for the same about3-4 weeks back currently she has been having fever,she does say she is feeling better today she had one loose bowel movement - History Source History Provided By: Patient Limitations to Obtaining History: No Limitations - Alcohol/Substance Use Hx Alcohol Use: No - Smoking History Smoking history: Never smoked Have you smoked in the past 12 months: No Aproximately how many cigarettes per day: 0 Home Medications - Allergies Allergies/Adverse Reactions: Allergies Allergy/AdvReac Type Severity Reaction Status Date / Time No Known Allergies Allergy Verified 01/28/16 20:23 - Home Medications Home Medications: Ambulatory Orders Omeprazole 20 mg PO DAILY 01/28/16 Review of Systems - Review of Systems Constitutional: reports: Fever, Weakness Eyes: reports: No Symptoms HENT: reports: No Symptoms Neck: reports: No Symptoms Cardiovascular: reports: No Symptoms Respiratory: reports: No Symptoms Gastrointestinal: reports: Diarrhea Genitourinary: reports: No Symptoms Musculoskeletal: reports: No Symptoms Integumentary: reports: No Symptoms Neurological: reports: No Symptoms Endocrine: reports: No Symptoms Hematology/Lymphatic: reports: No Symptoms Psychiatric: reports: No Symptoms Physical Exam Vital Signs: Vital Signs Temperature 98.6 F 02/08/18 09:00 Pulse Rate 72 02/08/18 09:00 Respiratory Rate 18 02/08/18 09:00 Blood Pressure 119/80 02/08/18 09:00 O2 Sat by Pulse Oximetry (%) 98 02/07/18 21:00 Constitutional: Yes: Well Nourished, Calm, Mild Distress HENT: Yes: Atraumatic Neck: Yes: Supple Cardiovascular: Yes: Regular Rate and Rhythm Respiratory: Yes: Regular, CTA Bilaterally Gastrointestinal: Yes: Normal Bowel Sounds, Soft Musculoskeletal: Yes: WNL Extremities: Yes: WNL Neurological: Yes: Alert, Oriented Psychiatric: Yes: Alert, Oriented Labs: CBC, BMP 02/08/18 06:30 02/08/18 06:30 Imaging - Results Cat Scan: Report Reviewed, Image Reviewed Assessment/Plan 37F presents to the ER with abdominal pain, nausea, diarrhea, and fever patients ct scan shows quite a lot of involvement cdiff sepsis fever tachy dirrhoea plan agree with vanco and flagyl once patient is afebrile for more than 24 hrs then we will stop iv falgy and continue vanco hydration rest as per the team
--- NOTE | 2018-02-08 13:13 | PN ---
Physical Exam: SUBJECTIVE: Patient seen and examined. She reports 1 episode of diarrhea this morning. Abdominal pain is improving. OBJECTIVE: Vital Signs Period Temp Pulse Resp BP Sys/Park Pulse Ox Last 24 Hr 98.4 F-99.1 F 72-95 18-20 116-138/74-95 98 GENERAL: The patient is awake, alert, and fully oriented, in no acute distress. LUNGS: Breath sounds equal, clear to auscultation bilaterally, no wheezes, no crackles, no accessory muscle use. HEART: Regular rate and rhythm, S1, S2 without murmur, rub or gallop. ABDOMEN: Soft, mild LLQ tenderness, nondistended, normoactive bowel sounds, no guarding, no rebound, no hepatosplenomegaly, no masses. EXTREMITIES: 2+ pulses, warm, well-perfused, no edema. Laboratory Results - last 24 hr 02/08/18 02/08/18 06:30 06:30 WBC 10.0 RBC 4.01 Hgb 11.8 Hct 35.2 MCV 87.9 MCH 29.3 MCHC 33.4 RDW 13.5 Plt Count 215 MPV 8.9 Absolute Neuts (auto) 7.1 Total Counted 100 Neutrophils % 70.8 Neutrophils % (Manual) 55.0 Band Neutrophils % 13.0 Lymphocytes % 14.8 D Lymphocytes % (Manual) 16.0 D Monocytes % 8.1 Monocytes % (Manual) 7 Eosinophils % 6.0 H D Eosinophils % (Manual) 9.0 H D Basophils % 0.3 Nucleated RBC % 0 Platelet Estimate Adequate Platelet Comment No clumping noted Sodium 139 Potassium 3.8 Chloride 114 H Carbon Dioxide 19 L Anion Gap 6 L BUN 4 L Creatinine 0.5 L Creat Clearance w eGFR > 60 Random Glucose 75 Calcium 7.5 L Magnesium 2.0 Active Medications Generic Name Dose Route Start Last Admin Trade Name Freq PRN Reason Stop Dose Admin Acetaminophen 1,000 mg 02/06/18 09:31 02/07/18 06:54 Ofirmev Injection - IVPB 1,000 mg Q6H PRN Administration pain 1-5 or fever Enoxaparin Sodium 40 mg 02/06/18 10:00 02/08/18 10:24 Lovenox - SQ 40 mg DAILY MG Administration Metronidazole 500 mg in 100 mls @ 100 mls/hr 02/07/18 10:00 02/08/18 10:24 Flagyl 500mg Premixed Ivpb - IVPB 100 mls/hr Q8H-IV MG Administration Potassium Chloride/Sodium Chloride 20 meq in 1,000 mls @ 100 mls/hr 02/07/18 08:45 02/08/18 12:17 Ns+20 Meq Kcl - IV 100 mls/hr ASDIR MG Administration Morphine Sulfate 2 mg 02/06/18 09:31 02/06/18 19:18 Morphine Sulfate IVPUSH 2 mg Q4H PRN Administration PAIN LEVEL 6-10 Ondansetron HCl 4 mg 02/06/18 09:31 02/07/18 18:56 Zofran Injection IVPUSH 4 mg Q6H PRN Administration NAUSEA Pantoprazole Sodium 40 mg 02/07/18 13:30 02/08/18 10:24 Protonix - PO 40 mg DAILY MG Administration Vancomycin HCl 125 mg 02/07/18 18:00 02/08/18 12:16 Vancomycin Oral Solution PO 125 mg Q6HPO MG Administration ASSESSMENT/PLAN: This is a 37 year old woman with a history of gastritis who presented to the ED with abdominal pain, fever, nausea, and diarrhea x 2-3 days. 1. Sepsis secondary to C. difficile colitis - Afebrile - Continue Flagyl IV, Vancomycin PO, IV fluid - Advance diet 2. Gastritis - Continue Protonix 3. Hypokalemia - Improved Visit type - Emergency Visit Emergency Visit: Yes ED Registration Date: 02/06/18 Care time: The patient presented to the Emergency Department on the above date and was hospitalized for further evaluation of their emergent condition. - New Patient This patient is new to me today: No - Critical Care Critical Care patient: No - Discharge Referral Referred to [facility] No
[2018-02-08] MEDS: ONDANSETRON 4 MG/2 ML VIAL IVPUSH PRN (18:45)
[2018-02-09] MEDS: VANCOMYCIN 250 MG/5 ML ORAL SOLUTION PO SCH ×3 (06:17→17:03)
[2018-02-09 07:50] LABS: ANION GAP 5 MMOL/L (8-16); CALCIUM 7.7 mg/dL (8.5-10.1); CHLORIDE 110 mmol/L (98-107); CO2 23 mmol/L (21-32); CREATININE 0.4 mg/dL (0.55-1.3); GLUCOSE,RANDOM 90 mg/dL (74-106); POTASSIUM 4.1 mmol/L (3.5-5.1); SODIUM 138 mmol/L (136-145)
[2018-02-09 08:14] LABS: BLOOD UREA NITROGEN 2 mg/dL (7-18)
[2018-02-09] MEDS: ONDANSETRON 4 MG/2 ML VIAL IVPUSH PRN ×2 (08:38→23:58)
[2018-02-09] MEDS: ENOXAPARIN NA (PORCINE) 40 MG/0.4 ML DISP.SYRIN SQ SCH (09:02)
[2018-02-09] MEDS: PANTOPRAZOLE 40 MG TABLET (FP) PO SCH (09:02)
[2018-02-09] MEDS: SODIUM CHLORIDE 0.9%/KCL 20 MEQ/1,000 ML INFUS.BAG IV SCH (09:02)
--- NOTE | 2018-02-09 13:39 | PN ---
Progress Note, Physician History of Present Illness: says she is nauseous feels like she is going to throw up taste different - Current Medication List Current Medications: Active Medications Enoxaparin Sodium (Lovenox -) 40 mg SQ DAILY [facility] Last Admin: 02/09/18 09:02 Dose: 40 mg Metronidazole (Flagyl 500mg Premixed Ivpb -) 500 mg in 100 mls @ 100 mls/hr IVPB Q8H-IV [facility] Last Admin: 02/09/18 09:02 Dose: 100 mls/hr Potassium Chloride/Sodium Chloride (Ns+20 Meq Kcl -) 20 meq in 1,000 mls @ 100 mls/hr IV ASDIR [facility] Last Admin: 02/09/18 09:02 Dose: Not Given Ondansetron HCl (Zofran Injection) 4 mg IVPUSH Q6H PRN PRN Reason: NAUSEA Last Admin: 02/09/18 08:38 Dose: 4 mg Pantoprazole Sodium (Protonix -) 40 mg PO DAILY [facility] Last Admin: 02/09/18 09:02 Dose: 40 mg Vancomycin HCl (Vancomycin Oral Solution) 125 mg PO Q6HPO [facility] Last Admin: 02/09/18 12:08 Dose: 125 mg - Objective Vital Signs: Vital Signs Temperature 98.5 F 02/09/18 09:46 Pulse Rate 66 02/09/18 09:46 Respiratory Rate 16 02/09/18 09:46 Blood Pressure 121/80 02/09/18 09:46 O2 Sat by Pulse Oximetry (%) 100 02/09/18 09:00 Constitutional: Yes: Calm, Mild Distress Respiratory: Yes: Regular, CTA Bilaterally Gastrointestinal: Yes: Normal Bowel Sounds, Soft Musculoskeletal: Yes: WNL Extremities: Yes: WNL Neurological: Yes: Alert, Oriented Psychiatric: Yes: Alert, Oriented Labs: CBC, BMP 02/08/18 06:30 02/09/18 06:30 INR, PTT INR 1.09 (0.83-1.09) 02/06/18 01:20 Assessment/Plan 37F presents to the ER with abdominal pain, nausea, diarrhea, and fever cdiff sepsis fever tachy dirrhoea plan continue vanco will stop flagyl monitor for fevers rest as per the team
[2018-02-09] MEDS ORDERED: ACETAMINOPHEN 325 MG TABLET (FP) PO PRN (14:52)
--- NOTE | 2018-02-09 14:52 | PN ---
Physical Exam: SUBJECTIVE: Patient seen and examined. She reports having a bad taste, nausea but no vomiting, and 1 episode of diarrhea this morning. OBJECTIVE: Vital Signs Period Temp Pulse Resp BP Sys/Park Pulse Ox Last 24 Hr 98.2 F-98.8 F 66-91 16-20 121-136/78-94 100 GENERAL: The patient is awake, alert, and fully oriented, in no acute distress. LUNGS: Breath sounds equal, clear to auscultation bilaterally, no wheezes, no crackles, no accessory muscle use. HEART: Regular rate and rhythm, S1, S2 without murmur, rub or gallop. ABDOMEN: Soft, nontender, nondistended, normoactive bowel sounds, no guarding, no rebound, no hepatosplenomegaly, no masses. EXTREMITIES: 2+ pulses, warm, well-perfused, no edema. Laboratory Results - last 24 hr 02/06/18 02/09/18 18:00 06:30 Sodium 138 Potassium 4.1 Chloride 110 H Carbon Dioxide 23 Anion Gap 5 L BUN 2 L* Creatinine 0.4 L Creat Clearance w eGFR > 60 Random Glucose 90 Calcium 7.7 L Stool O & P Wet [place] Permanent Slide Final report Current Medications Generic Name Dose Route Start Last Admin Trade Name Freq PRN Reason Stop Dose Admin Acetaminophen 650 mg 02/09/18 14:52 02/09/18 15:12 Tylenol - PO 650 mg Q4H PRN Administration HEADACHE Enoxaparin Sodium 40 mg 02/06/18 10:00 02/09/18 09:02 Lovenox - SQ 40 mg DAILY MG Administration Potassium Chloride/Sodium Chloride 20 meq in 1,000 mls @ 100 mls/hr 02/07/18 08:45 02/09/18 09:02 Ns+20 Meq Kcl - IV Not Given ASDIR MG Ondansetron HCl 4 mg 02/06/18 09:31 02/09/18 08:38 Zofran Injection IVPUSH 4 mg Q6H PRN Administration NAUSEA Pantoprazole Sodium 40 mg 02/07/18 13:30 02/09/18 09:02 Protonix - PO 40 mg DAILY MG Administration Vancomycin HCl 125 mg 02/07/18 18:00 02/09/18 17:03 Vancomycin Oral Solution PO 125 mg Q6HPO MG Administration ASSESSMENT/PLAN: This is a 37 year old woman with a history of gastritis who presented to the ED with abdominal pain, fever, nausea, and diarrhea x 2-3 days. 1. Sepsis secondary to C. difficile colitis - Remains afebrile - Discontinue Flagyl - likely cause of bad taste, nausea - Continue Vancomycin PO - Decrease IV fluid - Advance diet as tolerated 2. Gastritis - Continue Protonix 3. Hypokalemia - Improved Visit type - Emergency Visit Emergency Visit: Yes ED Registration Date: 02/06/18 Care time: The patient presented to the Emergency Department on the above date and was hospitalized for further evaluation of their emergent condition. - New Patient This patient is new to me today: No - Critical Care Critical Care patient: No - Discharge Referral Referred to [facility] Med [facility]C.: No
[2018-02-09] MEDS ORDERED: SODIUM CHLORIDE 1,000 ML IV SCH (17:15)
[2018-02-10] MEDS: VANCOMYCIN 250 MG/5 ML ORAL SOLUTION PO SCH ×3 (00:01→12:06)
--- NOTE | 2018-02-10 08:25 | PN ---
Progress Note, Physician History of Present Illness: taste metallic better nausea better dirrhoea better - Current Medication List Current Medications: Active Medications Acetaminophen (Tylenol -) 650 mg PO Q4H PRN PRN Reason: HEADACHE Last Admin: 02/09/18 15:12 Dose: 650 mg Enoxaparin Sodium (Lovenox -) 40 mg SQ DAILY [facility] Last Admin: 02/09/18 09:02 Dose: 40 mg Sodium Chloride (Normal Saline -) 1,000 mls @ 75 mls/hr IV ASDIR [facility] Last Admin: 02/09/18 21:43 Dose: 75 mls/hr Ondansetron HCl (Zofran Injection) 4 mg IVPUSH Q6H PRN PRN Reason: NAUSEA Last Admin: 02/09/18 23:58 Dose: 4 mg Pantoprazole Sodium (Protonix -) 40 mg PO DAILY [facility] Last Admin: 02/09/18 09:02 Dose: 40 mg Vancomycin HCl (Vancomycin Oral Solution) 125 mg PO Q6HPO [facility] Last Admin: 02/10/18 06:30 Dose: 125 mg - Objective Vital Signs: Vital Signs Temperature 98.2 F 02/10/18 06:29 Pulse Rate 68 02/10/18 06:29 Respiratory Rate 20 02/10/18 06:29 Blood Pressure 132/77 02/10/18 06:29 O2 Sat by Pulse Oximetry (%) 100 02/09/18 21:00 Constitutional: Yes: Calm, Mild Distress Cardiovascular: Yes: Regular Rate and Rhythm Respiratory: Yes: Regular, CTA Bilaterally Gastrointestinal: Yes: Normal Bowel Sounds, Soft Musculoskeletal: Yes: WNL Extremities: Yes: WNL Neurological: Yes: Alert, Oriented Psychiatric: Yes: Alert, Oriented Labs: CBC, BMP 02/08/18 06:30 INR, PTT INR 1.09 (0.83-1.09) 02/06/18 01:20 Assessment/Plan 37F presents to the ER with abdominal pain, nausea, diarrhea, and fever cdiff sepsis fever tachy dirrhoea plan continue oral vanco rest continue current mgmt patient improving rest as per the team
[2018-02-10 08:29] LABS: ANION GAP 7 MMOL/L (8-16); CHLORIDE 111 mmol/L (98-107); CO2 24 mmol/L (21-32); CREATININE 0.4 mg/dL (0.55-1.3); GLUCOSE,RANDOM 88 mg/dL (74-106); POTASSIUM 3.7 mmol/L (3.5-5.1); SODIUM 142 mmol/L (136-145)
[2018-02-10 08:47] LABS: BLOOD UREA NITROGEN 1 mg/dL (7-18)
[2018-02-10] MEDS ORDERED: PT OWN MED DRAWER 7, Y5N ONE ×3 (09:35→11:54)
[2018-02-10] MEDS: PANTOPRAZOLE 40 MG TABLET (FP) PO SCH (10:09)
[2018-02-10] MEDS: ENOXAPARIN NA (PORCINE) 40 MG/0.4 ML DISP.SYRIN SQ SCH (10:10)
[2018-02-10 10:39] VITALS: BP 139/91; PULSE 76; TEMP 97.5
--- NOTE | 2018-02-10 10:40 | DS ---
Physical Exam: SUBJECTIVE: Patient seen and examined OBJECTIVE: Vital Signs Period Temp Pulse Resp BP Sys/Park Pulse Ox Last 24 Hr 97.5 F-98.4 F 68-78 16-20 130-139/77-94 100 PHYSICAL EXAM GENERAL: The patient is awake, alert, and fully oriented, in no acute distress. HEAD: Normal with no signs of trauma. EYES: PERRL, extraocular movements intact, sclera anicteric, conjunctiva clear. ENT: Ears normal, nares patent, oropharynx clear without exudates, moist mucous membranes. NECK: Trachea midline, full range of motion, supple. LUNGS: Breath sounds equal, clear to auscultation bilaterally, no wheezes, no crackles, no accessory muscle use. HEART: Regular rate and rhythm, S1, S2 without murmur, rub or gallop. ABDOMEN: Soft, nontender, nondistended, normoactive bowel sounds, no guarding, no rebound, no hepatosplenomegaly, no masses. EXTREMITIES: 2+ pulses, warm, well-perfused, no edema. NEUROLOGICAL: Cranial nerves II through XII grossly intact. Normal speech, gait not observed. PSYCH: Normal mood, normal affect. SKIN: Warm, dry, normal turgor, no rashes or lesions noted. LABS Laboratory Results - last 24 hr 02/10/18 07:30 Sodium 142 Potassium 3.7 Chloride 111 H Carbon Dioxide 24 Anion Gap 7 L BUN 1 L* Creatinine 0.4 L Creat Clearance w eGFR > 60 Random Glucose 88 Calcium 8.0 L HOSPITAL COURSE: Date of Admission:02/06/18 Date of Discharge: 02/10/18 Discharge Summary Reason For Visit: COLITIS Current Active Problems Clostridium difficile colitis (Acute) Hypokalemia (Acute) Sepsis (Acute) Gastritis (Chronic) Condition: Improved - Instructions Diet, Activity, Other Instructions: You were admitted to [facility] on 02/06 for C. difficile colitis. You were treated with Flagyl IV and oral Vancomycin. You are being discharged on 02/10 and should complete a total of 14 days of oral Vancomycin 125 mg 4x a day. A prescription for the remaining 44 doses has been sent to [facility] on [address] [address]. You are currently on a full liquid diet. You may start a bland, soft diet and slowly introduce solid foods. You may resume your usual activity but are advised to use a separate bathroom from your family and to thoroughly clean your hands with soap and water. You should remain out of work for another week and may return on 02/20. A note has been provided for you. In the future, if you need antibiotics, you should ask the prescribing physician about taking a probiotic containing Lactobacillus such as Bacid. Referrals: Joselo Saxena MD [Primary Care Provider] - 1 Week Payton Edward MD [Staff Physician] - 1 Week Disposition: HOME - Home Medications Comprehensive Discharge Medication List: Ambulatory Orders Omeprazole 20 mg PO DAILY 01/28/16 Vancomycin HCl [Vancocin HCl] 125 mg PO QID #44 capsule 02/10/18 - Discharge Referral Referred to [facility] No
== END 2018-02-10 13:41 | disposition home or self-care (01) | DRG 872 ==
LOC: JER 22:07 → JERBED 02-06 07:30 → J8W 02-06 16:22
PROVIDERS: ADMIT Hospitalist; ATTEND Internal Medicine
DX: A41.9 Sepsis, unspecified organism (principal); A04.72 Enterocolitis due to Clostridium difficile, not specified as recurrent; K52.89 Other specified noninfective gastroenteritis and colitis; R00.0 Tachycardia, unspecified; K29.70 Gastritis, unspecified, without bleeding; E87.6 Hypokalemia
CPT/HCPCS: 36415; 74177-TC; 80048; 80053; 81003; 81015; 83605; 83735; 84100; 84484; 84703; 85025; 85610; 85730; 87040; 87045; 87046; 87086; 87177; 87205; 87209; 87324; 87449; 99285-25; J0131; J7030

== ENCOUNTER 2018-05-14 17:18 | Emergency (ER) | payer BC ==
[2018-05-14 17:27] VITALS: BP 116/86; PULSE 74; TEMP 98.3; BMI 21.6
--- NOTE | 2018-05-14 17:28 | PDOC ---
History of Present Illness - General Chief Complaint: Syncope/Near Syncope Stated Complaint: SYNCOPE Time Seen by Provider: 05/14/18 17:27 Past History - Past Medical History Allergies/Adverse Reactions: Allergies Allergy/AdvReac Type Severity Reaction Status Date / Time No Known Allergies Allergy Verified 05/14/18 17:27 Home Medications: Ambulatory Orders NK [No Known Home Medication] 05/14/18 COPD: No - Suicide/Smoking/Psychosocial Hx Smoking History: Never smoked Have you smoked in the past 12 months: No Number of Cigarettes Smoked Daily: 0 Hx Alcohol Use: No Drug/Substance Use Hx: No *Physical Exam - Vital Signs Last Vital Signs Temp Pulse Resp BP Pulse Ox 98.3 F 74 18 116/86 100 05/14/18 17:21 05/14/18 17:21 05/14/18 17:21 05/14/18 17:21 05/14/18 17:21 Moderate Sedation - Procedure Monitoring Vital Signs: Procedure Monitoring Vital Signs Temperature 98.3 F 05/14/18 17:21 Pulse Rate 74 05/14/18 17:21 Respiratory Rate 18 05/14/18 17:21 Blood Pressure 116/86 05/14/18 17:21 O2 Sat by Pulse Oximetry (%) 100 05/14/18 17:21
--- NOTE | 2018-05-14 17:48 | PDOC ---
History of Present Illness - General Chief Complaint: Syncope/Near Syncope Stated Complaint: SYNCOPE Time Seen by Provider: 05/14/18 17:27 History Source: Patient Exam Limitations: No Limitations - History of Present Illness Initial Comments: Pt is a 37 yo F, with PMH of gastritis, migraines, and recent admission for C diff, who is presenting after a pre-syncopal episode. Pt was in the ER with her mother, who was getting an NG tube placed. The pt started to feel light-headed, so the ER staff told her to get some air in the lobby. When the pt began walking , she felt vertiginous and placed herself against the wall. Another person in the hallway helped her to a seated position. The pt did not fall and hit her head. She has no active complaints at this time, and states she is feeling better now that she is sitting down in the bed. She only ate a yogurt today. Pt denies any fevers/chills, vision changes, chest pain, palpitations, SOB, nausea/ vomiting, abdominal pain, urinary symptoms, diarrhea/constipation, or leg swelling. Social: Pt denies any cigarette, alcohol, or drug use. Pt denies any recent travel or sick contacts. Surgical: no relevant history. Family: mother also with gastritis. 05/14/18 19:14 Past History - Travel Traveled outside of the country in the last 30 days: No Close contact w/someone who was outside of country & ill: No - Past Medical History Allergies/Adverse Reactions: Allergies Allergy/AdvReac Type Severity Reaction Status Date / Time No Known Allergies Allergy Verified 05/14/18 17:27 Home Medications: Ambulatory Orders NK [No Known Home Medication] 05/14/18 Diabetes: No GI Disorders: Yes (gastritis) HTN: No Hypercholesterolemia: No - Surgical History Abdominal Surgery: No - Suicide/Smoking/Psychosocial Hx Smoking History: Never smoked Have you smoked in the past 12 months: No Number of Cigarettes Smoked Daily: 0 Hx Alcohol Use: No Drug/Substance Use Hx: No Review of Systems - Review of Systems Able to Perform ROS?: Yes Is the patient limited Ken[place] proficient: No Constitutional: Yes: Weight Stable. No: Chills, Diaphoresis, Fever, Loss of Appetite HEENTM: No: Blurred Vision, Recent change in vision, Nose Congestion, Hearing Loss, Throat Pain, Difficulty Swallowing Respiratory: No: Cough, Shortness of Breath Cardiac (ROS): Yes: Lightheadedness. No: Chest Pain, Edema, Irregular Heart Rate, Palpitations, Syncope (pre-syncope), Chest Tightness ABD/GI: No: Constipated, Diarrhea, Nausea, Poor Appetite, Poor Fluid Intake, Vomiting, Indigestion, Abdominal cramping : No: Burning, Dysuria, Frequency, Pain, Urgency Musculoskeletal: No: Back Pain, Joint Pain Integumentary: No: Rash Neurological: Yes: See HPI, Headache, Dizziness. No: Numbness, Paresthesia, Seizure, Tremors, Weakness, Unsteady Gait, Ataxia Psychiatric: No: Sleep Pattern Change, Change in Appetite Endocrine: No: Increased Urine, Change in Weight Hematologic/Lymphatic: No: Anemia, Blood Clots, Easy Bleeding, Easy Bruising All Other Systems: Reviewed and Negative *Physical Exam - Vital Signs Last Vital Signs Temp Pulse Resp BP Pulse Ox 98.3 F 74 18 116/86 100 05/14/18 17:21 05/14/18 17:21 05/14/18 17:21 05/14/18 17:21 05/14/18 17:21 - Physical Exam General Appearance: Yes: Nourished, Appropriately Dressed. No: Apparent Distress HEENT: positive: EOMI, BEREKET, Normal ENT Inspection, Normal Voice, Pharynx Normal , Hearing Grossly Normal. negative: Scleral Icterus (R), Scleral Icterus (L), Pharyngeal Erythema, Tonsillar Exudate, Tonsillar Erythema, Rhinorrhea Neck: positive: Trachea midline, Normal Thyroid, Supple. negative: Tender, Rigid, Decreased range of motion, Lymphadenopathy (R), Lymphadenopathy (L) Respiratory/Chest: positive: Lungs Clear, Normal Breath Sounds. negative: Chest Tender, Respiratory Distress, Accessory Muscle Use, Crackles, Wheezing Cardiovascular: positive: Regular Rhythm, Regular Rate, S1, S2. negative: Edema , JVD, Murmur Vascular Pulses: Carotid (R): 4+, Carotid (L): 4+ Gastrointestinal/Abdominal: positive: Normal Bowel Sounds, Flat, Soft. negative : Tender, Organomegaly, Pulsatile Mass, Distended, Guarding, Rebound Rectal Exam: positive: deferred Lymphatic: negative: Adenopathy, Tenderness Musculoskeletal: positive: Normal Inspection. negative: CVA Tenderness Extremity: positive: Normal Capillary Refill, Normal Inspection, Normal Range of Motion, Pelvis Stable. negative: Tender, Pedal Edema Integumentary: positive: Normal Color, Dry, Warm. negative: Jaundice, Clammy, Diaphoresis, Rash Neurologic: positive: recording engineer II-XII NML intact, Fully Oriented, Alert, Normal Mood/ Affect, Normal Response, Motor Strength 5/5 Moderate Sedation - Procedure Monitoring Vital Signs: Procedure Monitoring Vital Signs Temperature 98.3 F 05/14/18 17:21 Pulse Rate 74 05/14/18 17:21 Respiratory Rate 18 05/14/18 17:21 Blood Pressure 116/86 05/14/18 17:21 O2 Sat by Pulse Oximetry (%) 100 05/14/18 17:21 Medical Decision Making - Medical Decision Making Pt was seen at bedside, also will be seen by attending Dr. Davis. Pt presenting after a pre-syncopal episode. Pt was in the ER with her mother, who was getting an NG tube placed. The pt started to feel light-headed, so the ER staff told her to get some air in the lobby. When the pt began walking, she felt vertiginous and placed herself against the wall. Another person in the hallway helped her to a seated position. The pt did not fall and hit her head. She has no active complaints at this time, and states she is feeling better now that she is sitting down in the bed. She only ate a yogurt today. Pt denies any fevers/chills, vision changes, chest pain, palpitations, SOB, nausea/vomiting, abdominal pain, urinary symptoms, diarrhea/constipation, or leg swelling. PE benign. Vitals WNL. Most likely vasovagal syncope vs hypoglycemic episode after watching mother get NG tube placed. Minimal suspicion for ACS or neuro pathology, as pt has no prior history or risk factors. Provided pt a PO challenge to see if symptoms improve. Providing 650 mg PO tylenol for mild headache. Will continue to reassess pt and monitor for symptomatic improvement. 05/14/18 17:48 ECG: HR 65, intervals WNL. Minimal LVH. TWIs V1-V3, no prior for comparison. Pt has no active complaints at this time. Pt can be discharged to home with follow-up. Pt advised to follow-up with PCP in 1-2 days. Strict return precautions provided with pt understanding. 05/14/18 18:20 05/14/18 19:10 *DC/Admit/Observation/Transfer Diagnosis at time of Disposition: Pre-syncope - Discharge Dispostion Disposition: HOME Condition at time of disposition: Improved Decision to Admit order: No - Referrals Referrals: Joselo Saxena MD [Non Staff, Medical] - - Patient Instructions Printed Discharge Instructions: DI for Syncope in Adults (Fainting) Additional Instructions: You were seen in the ER today for during a pre-syncopal (fainting) episode. Please follow-up with your primary care doctor within 1-2 days to discuss your visit and make sure your symptoms have improved. Please return to the ER if you have any worsening pain, development of fevers or chills, loss of consciousness , inability to tolerate food or fluids, or any other concerns. - Post Discharge Activity
--- NOTE | 2018-05-14 18:21 | PDOC ---
Attending Attestation - Resident Resident Name: Rosa Eduardo - ED Attending Attestation I have performed the following: I have examined & evaluated the patient, The case was reviewed & discussed with the resident, I agree w/resident's findings & plan, Exceptions are as noted - HPI HPI: 05/14/18 18:21 37-year-old female was watching the nurse place a nasogastric tube down her mother's throat and fainted 05/14/18 18:21 Slender 37-year-old female in no acute distress. Head normocephalic/atraumatic. Eyes pupils are equal to light and accommodation, extraocular muscles intact. Neck supple Lungs are clear to auscultation bilaterally CVS regular rate and rhythm S1, S2 Abdomen flat, nontender Extremities full range of motion, no deformity. Skin warm and dry. - Physicial Exam PE: 05/14/18 18:25 full physical exam is above neuro exam - alert,ambulatory,motor strength 5/5 b/l - Medical Decision Making 05/14/18 18:34 pt has no chest pain no sob imp vasovagel episode
[2018-05-14] MEDS ORDERED: ACETAMINOPHEN 325 MG TABLET (FP) PO ONE (18:26)
[2018-05-14] MEDS ORDERED: ACETAMINOPHEN 325 MG TABLET (FP) ONE (18:28)
--- NOTE | 2018-05-15 09:42 | EKG ---
Test Reason : Blood Pressure : / mmHG Vent. Rate : 065 BPM Atrial Rate : 065 BPM P-R Int : 128 ms QRS Dur : 084 ms QT Int : 442 ms P-R-T Axes : 023 074 048 degrees QTc Int : 459 ms NORMAL SINUS RHYTHM MINIMAL VOLTAGE CRITERIA FOR LVH, MAY BE NORMAL VARIANT BORDERLINE ECG WHEN COMPARED WITH ECG OF 12-JAN-2010 22:41, NO SIGNIFICANT CHANGE WAS FOUND Confirmed by ARIN LEI, BERNABE ([id number]) on 05/15/2018 9:41:49 AM Referred By: Confirmed By:BERNABE HINKLE MD
== END 2018-05-14 18:26 | disposition home or self-care (01) ==
LOC: JER 17:18
DX: R55 Syncope and collapse (principal)
CPT/HCPCS: 93005; 93010; 99282-25

== ENCOUNTER 2018-06-11 00:01 | Emergency (ER) | payer BC ==
[2018-06-11 00:31] VITALS: BP 148/105; PULSE 88; TEMP 98; BMI 19.8
--- NOTE | 2018-06-11 00:56 | PDOC ---
History of Present Illness - General Chief Complaint: Blood Pressure Problem Stated Complaint: HYPERTENSION Time Seen by Provider: 06/11/18 00:32 History Source: Patient Exam Limitations: No Limitations - History of Present Illness Initial Comments: Patient is a 37 y/o F w/ PMHx gastritis, migraine, hospitalized in February for C Diff colitis, p/w hypertension as measured on home blood pressure cuff, L- sided chest pain, and radiation down left arm. No other complaints. Hemodynamically stable on presentation, BP 148/105. Reports being prescribed a course of oral prednisolone by her ENT. Reports recent echocardiogram demonstrating isolated MVP. 06/11/18 00:51 Past History - Travel Traveled outside of the country in the last 30 days: No Close contact w/someone who was outside of country & ill: No - Past Medical History Allergies/Adverse Reactions: Allergies Allergy/AdvReac Type Severity Reaction Status Date / Time No Known Allergies Allergy Verified 06/11/18 00:29 Home Medications: Ambulatory Orders NK [No Known Home Medication] 05/14/18 COPD: No Diabetes: No GI Disorders: Yes (gastritis) HTN: No Hypercholesterolemia: No - Surgical History Abdominal Surgery: No - Suicide/Smoking/Psychosocial Hx Smoking History: Never smoked Have you smoked in the past 12 months: No Number of Cigarettes Smoked Daily: 0 Information on smoking cessation initiated: No Hx Alcohol Use: No Drug/Substance Use Hx: No Review of Systems - Review of Systems Comments:: As per HPI 06/11/18 00:54 *Physical Exam - Vital Signs Last Vital Signs Temp Pulse Resp BP Pulse Ox 98.0 F 88 18 148/105 H 100 06/11/18 00:29 06/11/18 00:29 06/11/18 00:29 06/11/18 00:29 06/11/18 00:29 - Physical Exam Comments: Gen: A&Ox3, NAD HEENT: NC/AT, PERRLA, EOMI, MMM, no exudates Neck: supple, NT, no LAD, no JVD CV: RRR no m/r/g Resp: CTA b/l Abd: +bs, soft, NT, ND Ext: 2+ pulses, wwp, no edema Neuro: station gateman, motor, sensory systems w/o focal deficit Psych: highly anxious Skin: warm, dry, normal turgor 06/11/18 00:55 Moderate Sedation - Procedure Monitoring Vital Signs: Procedure Monitoring Vital Signs Temperature 98.0 F 06/11/18 00:29 Pulse Rate 88 06/11/18 00:29 Respiratory Rate 18 06/11/18 00:29 Blood Pressure 148/105 H 06/11/18 00:29 O2 Sat by Pulse Oximetry (%) 100 06/11/18 00:29 Medical Decision Making - Medical Decision Making Home BP readings and BP on presentation are not acutely concerning. Will need BP checked as outpatient following completion of steroids. Patient's complaints are c/w typical ACS, therefore will order CBC, CMP, troponin, EKG. 06/11/18 00:56 CBC wnl. 06/11/18 01:37 CMP wnl. Troponin negative. 06/11/18 01:52 EKG sinus w/o ST changes. Will discharge with reassurance and instruct to f/u with PMD after completing steroids, refrain from daily BP checks while on steroids. 06/11/18 01:55 *DC/Admit/Observation/Transfer Diagnosis at time of Disposition: High blood pressure due to drug - Discharge Dispostion Disposition: HOME Condition at time of disposition: Stable - Referrals Referrals: Joselo Saxena DO [Other] - Patient Instructions Printed Discharge Instructions: Metilprednisolona Additional Instructions: After thorough workup your labs and EKG were all normal, and there is no concern for cardiac injury at this time. Your elevated blood pressure is a well- known side effect of methylprednisolone use. Please follow up with your primary medical doctor after completing the course of steroids, have your blood pressure checked, and follow your doctor's recommendations at that time. If you experience any new or worsening chest pain, shortness of breath, abnormal headache, focal weakness or change in sensation, or any other concerning symptom, please return to the Emergency Department immediately. - Post Discharge Activity
[2018-06-11 01:19] LABS: BASO % 0.5 % (0-2.0); EOS % 0.8 % (0-4.5); HEMATOCRIT 39.1 % (32.4-45.2); HEMOGLOBIN 13.5 GM/dL (10.7-15.3); LYMPH % 28.3 % (8-40); MCHC 34.6 g/dl (32.0-36.0); MEAN CELL VOLUME 89.7 fl (80-96); MEAN PLT VOLUME 8.6 fl (7.5-11.1); MONO % 7.8 % (3.8-10.2); NEUT % 62.6 % (42.8-82.8); PLATELET COUNT 247 K/MM3 (134-434); RBC 4.36 M/mm3 (3.60-5.2); RDW 13.1 % (11.6-15.6); WHITE BLOOD COUNT 9.5 K/mm3 (4.0-10.0)
--- NOTE | 2018-06-11 01:19 | PDOC ---
Attending Attestation - HPI HPI: This patient is a 37 year old female with PMHx of gastritis, migraines, was hospitalized in February for c-diff, and p/w concern for elevated blood pressure from at-home reading. Patient also endorses numbness in left arm, and sharp, left sided chest pain. She notes that she is on oral steroid prescribed by her ENT for her sinus issues/nasal congestion. She states that she was diagnosed with mitral valve prolapse on recent echo. [facility] Owner: Dr. Du ([facility]) 06/11/18 01:38 <Abi Ellison - Last Filed: 06/11/18 01:38> - Resident Resident Name: Iván Díaz - ED Attending Attestation I have performed the following: I have examined & evaluated the patient, The case was reviewed & discussed with the resident, I agree w/resident's findings & plan, Exceptions are as noted - Physicial Exam PE: 06/11/18 02:14 on examination Pt awake and alert Answers questions appropriately RRR CTA B/l Abd soft non distended, non tender to palpation 06/11/18 02:16 - Medical Decision Making 06/11/18 02:16 EKG NSR rate of 71 bpm, axis nml, intervals nml, no st elevation or depression, t waves upright 06/11/18 02:16 Laboratory Tests 06/11/18 06/11/18 01:08 01:08 WBC 9.5 Hgb 13.5 Hct 39.1 Plt Count 247 BUN 19 H Creatinine 0.7 Troponin I < 0.02 BP (r) - 161/100 (l) - 151/100 Pt has no chest pain now Will discharge to home Pt asked to follow up with her gig tender Return to the ER for any recurrence of symptoms <Kim Hernandez - Last Filed: 06/11/18 02:17> *DC/Admit/Observation/Transfer <Kim Hernandez - Last Filed: 06/11/18 02:17> Diagnosis at time of Disposition: High blood pressure due to drug - Discharge Dispostion Disposition: HOME Condition at time of disposition: Stable - Referrals Referrals: Joselo Saxena DO [Other] - Patient Instructions Printed Discharge Instructions: Metilprednisolona Additional Instructions: After thorough workup your labs and EKG were all normal, and there is no concern for cardiac injury at this time. Your elevated blood pressure is a well- known side effect of methylprednisolone use. Please follow up with your primary medical doctor after completing the course of steroids, have your blood pressure checked, and follow your doctor's recommendations at that time. If you experience any new or worsening chest pain, shortness of breath, abnormal headache, focal weakness or change in sensation, or any other concerning symptom, please return to the Emergency Department immediately. - Post Discharge Activity
[2018-06-11 01:49] LABS: ALBUMIN 3.5 g/dl (3.4-5.0); ALK PHOS 58 U/L (45-117); ANION GAP 5 MMOL/L (8-16); BILIRUBIN,TOTAL 0.2 mg/dL (0.2-1); BLOOD UREA NITROGEN 19 mg/dL (7-18); CALCIUM 8.6 mg/dL (8.5-10.1); CHLORIDE 107 mmol/L (98-107); CO2 28 mmol/L (21-32); CREATININE 0.7 mg/dL (0.55-1.3); GLUCOSE,RANDOM 95 mg/dL (74-106); POTASSIUM 4.4 mmol/L (3.5-5.1); SGOT/AST 26 U/L (15-37); SGPT/ALT 31 U/L (13-61); SODIUM 140 mmol/L (136-145); TOT PROT 7.1 g/dl (6.4-8.2)
--- NOTE | 2018-06-11 15:37 | EKG ---
Test Reason : Blood Pressure : / mmHG Vent. Rate : 071 BPM Atrial Rate : 071 BPM P-R Int : 132 ms QRS Dur : 086 ms QT Int : 404 ms P-R-T Axes : 080 069 056 degrees QTc Int : 439 ms NORMAL SINUS RHYTHM WITH SINUS ARRHYTHMIA NORMAL ECG WHEN COMPARED WITH ECG OF 14-MAY-2018 17:40, T WAVE INVERSION NO LONGER EVIDENT IN ANTERIOR LEADS Confirmed by KATHE MAURO MD ([id number]) on 06/11/2018 3:36:52 PM Referred By: Confirmed By:KATHE MAURO MD
== END 2018-06-11 02:11 | disposition home or self-care (01) ==
LOC: JER 00:01
DX: I15.8 Other secondary hypertension (principal)
CPT/HCPCS: 36415; 80053; 84484; 85025; 93005; 93010; 99282-25

== ENCOUNTER 2019-04-04 09:17 | Emergency (ER) | payer BC ==
[2019-04-04 09:26] VITALS: BMI 20.7
--- NOTE | 2019-04-04 10:30 | PDOC ---
Attending Attestation - Resident Resident Name: Robert Landers - ED Attending Attestation I have performed the following: I have examined & evaluated the patient, The case was reviewed & discussed with the resident, I agree w/resident's findings & plan, Exceptions are as noted - HPI HPI: 04/04/19 10:26 admitting 38-year-old female states she has a history of a aortic aneurysm and mitral valve prolapse here today complaining of chest pain that started last night. Patient describes it as a sharp pain no radiation however this morning she developed some left-sided arm tingling she states that she was at work this a.m. and suddenly felt lightheaded did have some associated blurry vision and felt very warm states she drank a little bit of water and her symptoms resolved denies any LOC no diaphoresis since then states her vision is at baseline does have a history of poor vision and states that she may be requiring glasses however she has not had a recent evaluation. 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 No recent travel no history of PE or DVT patient is not a smoker - Physicial Exam PE: 04/04/19 10:27 Awake alert no acute distress lungs are clear bilaterally heart is regular no appreciated murmurs rubs or gallops. Patient does have left-sided chest wall tenderness which is visibly tender no ecchymosis crepitus or step-off. Abdomen is soft and tender no palpable masses. Patient has symmetric 2+ DP radial pulses neuro exam she has 5 out of 5 strength all 4 extremities cranial nerves II through XII are intact. Visual troncoso are intact. She does have decreased visual acuity on the right eye is a 20/50 the left eye is 20/25 does have subjective decrease sensation to light touch over the dorsal side of the left forearm and left hand. No sensory deficit noted in lower extremities speech is clear and O x3 - Medical Decision Making 04/04/19 10:28 38-year-old female history of previous aneurysm believed to be aortic here with chest pain which is sharp and reproducible but also having vision changes which are transient left-sided paresthesia and decreased sensation in the left arm. Differential includes aortic dissection intracranial pathology pinched nerve however patient denies neck pain ACS is also considered however less likely to the patient's absence of risk factors plan EKG troponin CBC CMP we will obtain a CT head without contrast in addition a CT chest abdomen pelvis of the aorta to rule out aortic aneurysm or dissection will hold aspirin pending results of the CTA Heart Score/ECG Review #1 ECG reviewed & interpreted by me at: 10:29 General ECG Interpretation: Sinus Rhythm, Normal Rate, Normal Intervals, No acute ischemic changes
[2019-04-04 10:48] LABS: BASO % 0.5 % (0-2.0); EOS % 0.3 % (0-4.5); HEMATOCRIT 39.9 % (32.4-45.2); HEMOGLOBIN 13.5 GM/dL (10.7-15.3); LYMPH % 20.7 % (8-40); MCH 30.2 pg (25.7-33.7); MCHC 33.8 g/dl (32.0-36.0); MEAN CELL VOLUME 89.3 fl (80-96); MEAN PLT VOLUME 9.7 fl (7.5-11.1); MONO % 4.9 % (3.8-10.2); NEUT % 73.6 % (42.8-82.8); PLATELET COUNT 238 K/MM3 (134-434); RBC 4.47 M/mm3 (3.60-5.2); RDW 13.5 % (11.6-15.6); WHITE BLOOD COUNT 6.6 K/mm3 (4.0-10.0)
[2019-04-04 10:51] LABS: INR 0.92 (0.83-1.09); PROTHROMBIN TIME (PATIENT) 10.9 SEC (9.7-13.0)
[2019-04-04 10:54] LABS: ACTIVATED PTT 33.5 SECONDS (25.2-36.5)
[2019-04-04 11:16] LABS: ALBUMIN 4.4 g/dl (3.4-5.0); BILIRUBIN,TOTAL 0.5 mg/dL (0.2-1); BLOOD UREA NITROGEN 8.9 mg/dL (7-18); CALCIUM 9.6 mg/dL (8.5-10.1); CREATININE 0.7 mg/dL (0.55-1.3); POTASSIUM 5.1 mmol/L (3.5-5.1)
--- NOTE | 2019-04-04 11:41 | PDOC ---
History of Present Illness - General Chief Complaint: Chest Pain Stated Complaint: CHEST PAIN Time Seen by Provider: 04/04/19 09:27 History Source: Patient Exam Limitations: No Limitations Past History - Past Medical History Allergies/Adverse Reactions: Allergies Allergy/AdvReac Type Severity Reaction Status Date / Time No Known Allergies Allergy Verified 04/04/19 09:26 Home Medications: Ambulatory Orders NK [No Known Home Medication] 05/14/18 Cardiac Disorders: Yes (Aortic aneusym, mitral valve prolapse) COPD: No Diabetes: No GI Disorders: Yes (gastritis) HTN: No Hypercholesterolemia: No - Surgical History Abdominal Surgery: No - Psycho Social/Smoking Cessation Hx Smoking History: Never smoked Have you smoked in the past 12 months: No Number of Cigarettes Smoked Daily: 0 Information on smoking cessation initiated: No Hx Alcohol Use: No Drug/Substance Use Hx: No *Physical Exam - Vital Signs Last Vital Signs Temp Pulse Resp BP Pulse Ox 98.3 F 73 19 159/98 100 04/04/19 09:23 04/04/19 09:23 04/04/19 09:23 04/04/19 09:23 04/04/19 09:23 ED Treatment Course - LABORATORY CBC & Chemistry Diagram: 04/04/19 10:32 04/04/19 10:32 - ADDITIONAL ORDERS Additional order review: Laboratory Results 04/04/19 04/04/19 04/04/19 10:38 10:32 10:32 PT with INR INR PTT (Actin FS) Sodium 138 Potassium 5.1 Chloride 106 Carbon Dioxide 28 Anion Gap 4 L BUN 8.9 Creatinine 0.7 Est GFR (CKD-EPI)AfAm 125.61 Est GFR (CKD-EPI)NonAf 108.38 Random Glucose 88 Calcium 9.6 Total Bilirubin 0.5 AST 26 ALT 18 Alkaline Phosphatase 58 Creatine Kinase 134 Troponin I < 0.02 Total Protein 8.0 Albumin 4.4 Serum , Qual Negative 04/04/19 10:32 PT with INR 10.90 INR 0.92 PTT (Actin FS) 33.5 Sodium Potassium Chloride Carbon Dioxide Anion Gap BUN Creatinine Est GFR (CKD-EPI)AfAm Est GFR (CKD-EPI)NonAf Random Glucose Calcium Total Bilirubin AST ALT Alkaline Phosphatase Creatine Kinase Troponin I Total Protein Albumin Serum , Qual 04/04/19 10:32 RBC 4.47 MCV 89.3 MCHC 33.8 RDW 13.5 MPV 9.7 D Neutrophils % 73.6 Lymphocytes % 20.7 D Monocytes % 4.9 Eosinophils % 0.3 Basophils % 0.5 Medical Decision Making - Medical Decision Making 04/04/19 11:39 HPI: 38F PMH MVP, Ao Aneursym, migraines c/o left sided chest pain that started suddenly last night w/o radiation. Described as sharp 8/10 pain that decreased over time (3/10at the lowest). Had associated left arm numbness and tingling. Patient woke up today and experienced a worsening of the chest pain (7/10) and worsening numbness. around 8am at work pt felt visual blurring which has mostly resolved by time of exam. Denies f/c, headaches, lightheadedness, dizziness, weakness, numbness/tingling of other limbs. Denies palpitation, sob, pleuritic cp. No neck pain, atraumatic. LMP 01/2019, pt is s/p essure. PCP in [facility] - Dr. Du; echo performed to dx aneursym, 2nd echo f/u in november shows no change (per pt) MEDS: not taking daily or prn med for migraines (not needed) NKDA Denies smoking, etoh, ilicit drug use cp visual troncoso ok numbness tingling LUE symmetric pulses no neck pain labs, cta, ekg ROS: CONSTITUTIONAL: Denies F / C HEENT: Endorses blurry vision. Denies headache, lightheadedness, dizziness, changes in hearing. RESP: Denies SOB, cough, orthopnea, BARROW CARD: Endorses chest pain. Denies palpitations GI: Denies N / V / D, abdominal pain, bloody stool, inability to tolerate PO : Denies dysuria, frequency SKIN: Denies rashes NEURO: Endorses numbness/tingling of the LUE. Denies other numbness, tingling, denies weakness MSK: Denies back pain PE: GEN: Well appearing, NAD, comfortable. AAOx3 HEENT: NC/AT, CN II-XII intact EOMI, PERRLA, visual troncoso intact, 20/20 left, 20/50 right. No facial asymmetry. Moist mucous membranes. Normal voice. Supple neck w/ FROM. No ttp of the neck, midline or paraspinal. CV: +TTP over left chest (same pain). No rash. S1/S2, RRR, no m/r/g. ?click LUNG: CTAB, no wheezes, crackles, rales, rhonchi. GI: soft, ndnt, +BS, no guarding, no rebound. EXTREMITIES: 2+ distal pulses, symmetric. No obvious deformities of all extremities. SKIN: warm, dry, normal turgor PSYCH: normal mood and affect NEURO: Moving all extremities well. 5/5 UE LE strength b/l. Sensation of extensor aspect of left forearm and dorsal aspect of left hand. Otherwise symmetric sensation. No FTN or heel-davila ataxia. No pronator drift. Ambulates w / normal gait. MDM: 38F PMH MVP, Ao Aneursym c/o chest pain, left arm numbness, and visual blurring. reproducible pain. sensory deficits on the left forearm and dorsal hand otherwise neurologically intact. 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 Du - Ascending Ao dilation 4cm, no aneurysm, mild MVP, MR, EF 55-65% on last echo. comfortable w/ plan to repeat trop and dispo accordingly 04/04/19 15:10 Patient is feeling better NSAIDs have reduced the pain Numbness decreasing CT head neg CT reports: CTA CHEST/ABD 1. No evidence of thoracic or abdominal aortic aneurysm or dissection. 2. 4 mm left upper lobe nodule for which [address] follow-up is now recommended. 3. No evidence of acute pathology within the chest abdomen. CT Head No evidence of acute intracranial hemorrhage, edema, midline shift, mass effect , or skull fracture. There is no CT evidence of acute territorial infarction.. - f/u 2nd trop if neg, dispo home w/ cards f/u will provide results to patient Discharge - Discharge Information Problems reviewed: Yes Clinical Impression/Diagnosis: Chest pain, atypical Condition: Stable Disposition: HOME - Admission No - Follow up/Referral - Patient Discharge Instructions Patient Printed Discharge Instructions: DI for Atypical Chest Pain Additional Instructions: You were seen in the Emergency Department. A copy of your imaging reports were provided. Please take these reports to your doctors. Take NSAIDs (e.g. advil, motrin, aleeve) for pain as directed by the label. These can be bought over the counter. Drink plenty of fluids. Follow up with your [facility] in the next 3-5 days regarding your symptoms. Follow up with your Primary Care Doctor regarding this ED visit in the next 7 days. IMMEDIATELY RETURN TO THE NEAREST EMERGENCY DEPARTMENT IF YOU EXPERIENCE WORSENING, NEW, OR CONCERNING SYMPTOMS. - Post Discharge Activity
[2019-04-04] MEDS ORDERED: IBUPROFEN 600 MG TABLET (FP) PO ONE (12:50)
--- NOTE | 2019-04-04 14:56 | EKG ---
Test Reason : Blood Pressure : / mmHG Vent. Rate : 069 BPM Atrial Rate : 069 BPM P-R Int : 130 ms QRS Dur : 090 ms QT Int : 420 ms P-R-T Axes : 081 075 041 degrees QTc Int : 450 ms NORMAL SINUS RHYTHM POSSIBLE LEFT ATRIAL ENLARGEMENT LEFT VENTRICULAR HYPERTROPHY ABNORMAL ECG WHEN COMPARED WITH ECG OF 11-JUN-2018 01:17, NONSPECIFIC T WAVE ABNORMALITY NOW EVIDENT IN ANTERIOR LEADS Confirmed by ALICE LEI, ZANA ([id number]) on 04/04/2019 2:55:37 PM Referred By: Confirmed By:ZANA JENKINS MD
[2019-04-04 15:35] VITALS: BP 150/76; PULSE 76; TEMP 98
== END 2019-04-04 15:39 | disposition home or self-care (01) ==
LOC: JER 09:17
DX: R07.89 Other chest pain (principal); I34.1 Nonrheumatic mitral (valve) prolapse; I71.4 Abdominal aortic aneurysm, without rupture; R20.0 Anesthesia of skin; H53.8 Other visual disturbances
CPT/HCPCS: 36415; 70450-TC; 71275-TC; 74175-TC; 80053; 82550; 84484; 84703; 85025; 85610; 85730; 93005; 93010; 99282-25

== ENCOUNTER 2022-11-09 18:55 | Emergency (ER) | payer BC ==
[2022-11-09 19:13] VITALS: BP 159/89; PULSE 91; RESP 22; TEMP 97.6; BMI 22.7
[2022-11-09] MEDS ORDERED: SODIUM CHLORIDE 0.9% 500 ML INFUS.BAG IV ONE (20:30)
[2022-11-09] MEDS ORDERED: METOCLOPRAMIDE HCL INJECTION 10 MG/2 ML VIAL IVPUSH ONE (20:31)
[2022-11-09] MEDS ORDERED: METOCLOPRAMIDE HCL INJECTION 10 MG/2 ML VIAL ONE (20:53)
[2022-11-09 21:17] LABS: PH,URINE >= 9.0 (5.0-8.0); URINE APPEARANCE CLEAR; URINE BILIRUBIN NEGATIVE (NEGATIVE); URINE COLOR YELLOW; URINE GLUCOSE (UA) NEGATIVE (NEGATIVE); URINE KETONE 2+ (NEGATIVE); URINE LEUK ESTERASE NEGATIVE (NEGATIVE); URINE NITRITE NEGATIVE (NEGATIVE); URINE PROTEIN TRACE (NEGATIVE); URINE UROBILINOGEN 0.2 mg/dL (0.2-1.0)
[2022-11-09 21:35] LABS: POTASSIUM 3.4 mmol/L (3.5-5.1)
[2022-11-09 21:37] LABS: ALBUMIN 4.1 g/dl (3.4-5.0); BLOOD UREA NITROGEN 12.7 mg/dL (7-18); CALCIUM 9.4 mg/dL (8.5-10.1)
[2022-11-09 21:40] LABS: CREATININE 0.8 mg/dL (0.55-1.3)
[2022-11-09 21:42] LABS: BILIRUBIN,TOTAL 0.4 mg/dL (0.2-1); TOT PROT 7.6 g/dl (6.4-8.2)
[2022-11-09] MEDS ORDERED: ACETAMINOPHEN 1000 MG/100 ML BAG IVPB ONE (21:47)
[2022-11-09] MEDS ORDERED: ACETAMINOPHEN INJECTION 100 ML IVPB ONE (22:08)
== END 2022-11-09 23:45 | disposition home or self-care (01) ==
LOC: JER 18:55
PROC: 3E033NZ Introduction of Analgesics, Hypnotics, Sedatives into Peripheral Vein, Percutaneous Approach (ICD-10-PCS; principal; 2022-11-09)
PROC: 3E033GC Introduction of Other Therapeutic Substance into Peripheral Vein, Percutaneous Approach (ICD-10-PCS; 2022-11-09)
DX: G43.009 Migraine without aura, not intractable, without status migrainosus (principal); R11.2 Nausea with vomiting, unspecified; H53.149 Visual discomfort, unspecified
CPT/HCPCS: 36415; 80053; 81003; 99284-25

== ENCOUNTER 2024-09-07 10:30 | Emergency (ER) | payer BC, OTHER ==
[2024-09-07 10:38] VITALS: BP 130/80; PULSE 63; RESP 20; TEMP 98.3; BMI 26.6
[2024-09-07] MEDS: ONDANSETRON 4 MG/2 ML VIAL IVPUSH ONE (11:40)
[2024-09-07] MEDS: ONDANSETRON *ODT* 4 MG TABLET SL ONE (11:40)
[2024-09-07] MEDS: MECLIZINE HCL 25 MG TABLET (FP) PO ONE ×2 (11:40→13:35)
[2024-09-07] MEDS: SODIUM CHLORIDE 0.9% 500 ML INFUS.BAG IV ONE (11:40)
[2024-09-07 11:41] LABS: ABSOLUTE IMMATURE GRANULOCYTES 0.02 x10^3/uL (0.0-0.031); BASOPHILS # 0.02 x10^3/uL (0.01-0.08); EOSINOPHIL % 0.4 % (0.7-5.8); EOSINOPHILS # 0.03 x10^3/uL (0.04-0.36); HEMATOCRIT 39.4 % (34.1-44.9); HEMOGLOBIN 13.2 g/dL (11.2-15.7); MCHC 33.5 g/dl (32.2-35.5); MEAN CELL VOLUME 89.1 fl (79.4-94.8); MEAN PLT VOLUME 10.1 fl (9.4-12.3); MONOCYTE # 0.28 x10^3/uL (0.24-0.86); MONOCYTE % 3.6 % (4.7-12.5); PLATELET COUNT 236 x10^3/uL (182-369); RDW 12.1 % (12.2-17.1)
[2024-09-07] MEDS ORDERED: MECLIZINE HCL 25 MG TABLET (FP) ONE (11:41)
[2024-09-07] MEDS ORDERED: ONDANSETRON 4 MG/2 ML VIAL ONE (11:41)
[2024-09-07 12:04] LABS: POTASSIUM 4.4 mmol/L (3.5-5.1)
[2024-09-07 12:05] LABS: CALCIUM 9.9 mg/dL (8.5-10.1)
[2024-09-07 12:06] LABS: ALBUMIN 3.8 g/dl (3.4-5.0); BLOOD UREA NITROGEN 9.4 mg/dL (7-18)
[2024-09-07 12:11] LABS: BILIRUBIN,TOTAL 0.4 mg/dL (0.2-1); TOT PROT 7.3 g/dl (6.4-8.2)
[2024-09-07 12:14] LABS: CREATININE 0.8 mg/dL (0.55-1.3)
== END 2024-09-07 15:03 | disposition home or self-care (01) ==
LOC: JER 10:30
PROC: 3E033GC Introduction of Other Therapeutic Substance into Peripheral Vein, Percutaneous Approach (ICD-10-PCS; principal; 2024-09-07)
DX: R42 Dizziness and giddiness (principal); R11.2 Nausea with vomiting, unspecified; R10.13 Epigastric pain; R51.9 Headache, unspecified; R53.1 Weakness
CPT/HCPCS: 36415; 80053; 84703; 85025; 93005; 93010; 99284-25